=== PATIENT | female | born 1935 | race Caucasian/White ===

== ENCOUNTER 2017-11-04 07:08 | Day surgery (SDC) | payer MEDICARE, OTHER ==
[~2017-11-04] VITALS: Ht 175.3 cm; Wt 95.7 kg
[~2017-11-04 07:08] MED LIST: ALEN70 PO; AMLO10 PO; AMLO5 PO; AMOX500 PO; ATEN25 PO; BP MED; CALGLU500; CHOL10002 PO; CYCL10 PO; Calcium Magnes1 EACH PO; ERGO400; FAMO20 PO; HCTZ; HYDACE5 PO; HYDCHL25 PO; IBUP600 PO; LISINOPRIL; METO50 PO; METO50ER PO; Norco 5-325 Ta1 EACH PO; OMEPRAZOLE MAGN20 MG PO; OXYACE5T PO; PRAV20 PO; Permethrin59 ML TOP; STOMACH ACID MED; TAMS.4ER PO; [UNRECOGNIZED DRUG - REMARK]; [UNRECOGNIZED DRUG - REMARK]
== END 2017-11-04 22:51 | disposition home or self-care (01) ==
LOC: ORSCMMR 07:08
PROVIDERS: Internal Medicine Gastroenterology
PROC: 0DBK8ZX Excision of Ascending Colon, Via Natural or Artificial Opening Endoscopic, Diagnostic (ICD-10-PCS; principal; 2017-11-04 08:30)
PROC: 0DB68ZX Excision of Stomach, Via Natural or Artificial Opening Endoscopic, Diagnostic (ICD-10-PCS; principal; 2017-11-04 08:30)
PROC: 0DB48ZX Excision of Esophagogastric Junction, Via Natural or Artificial Opening Endoscopic, Diagnostic (ICD-10-PCS; principal; 2017-11-04 08:30)
PROC: 0DBL8ZX Excision of Transverse Colon, Via Natural or Artificial Opening Endoscopic, Diagnostic (ICD-10-PCS; principal; 2017-11-04 08:30)
PROC: 0DB98ZX Excision of Duodenum, Via Natural or Artificial Opening Endoscopic, Diagnostic (ICD-10-PCS; principal; 2017-11-04 08:30)
DX: R19.5 Other fecal abnormalities (principal); K21.9 Gastro-esophageal reflux disease without esophagitis; D12.2 Benign neoplasm of ascending colon; K63.5 Polyp of colon; K57.30 Diverticulosis of large intestine without perforation or abscess without bleeding; K44.9 Diaphragmatic hernia without obstruction or gangrene; I10 Essential (primary) hypertension; E78.00 Pure hypercholesterolemia, unspecified; Z79.899 Other long term (current) drug therapy
CPT/HCPCS: 88305; 88341; 88342; J7120

== ENCOUNTER → 2019-01-29 | Outpatient (CLI) | payer MEDICARE, OTHER | END | disposition home or self-care (01) | LOC: LAB 12:02 → LAB SHORT 12:02 | DX: L08.89 Other specified local infections of the skin and subcutaneous tissue (principal) | CPT/HCPCS: 87070; 87075; 87186; 87205 ==

== ENCOUNTER → 2020-03-06 | Outpatient (CLI) | payer MEDICARE, OTHER ==
[~2020-03-06] MED LIST changes: +Aspir 8181 MG PO; +CENTRUM SILVER1 EAC2 PO; +CLOP75 PO; +LISI20 PO; +MIRALAX17 GM PO; +Nitrostat0.3 MG SL; +OMEP20ER PO; +PANT40 PO; +VITAMIN D3-ALO1 EACH PO
[2020-03-06 13:29] LABS: BASOPHILS ABSOLUTE AUTO 0.05 K/mm3 (0.00-0.23); BASOPHILS PERCENT AUTO 1 % (0-2); EOSINOPHILS PERCENT AUTO 3 % (0-6); Hematocrit 41.9 % (33.0-51.0); Hemoglobin 13.5 g/dL (11.5-16.0); IMMATURE GRAN ABSOLUTE AUTO 0.02 K/mm3 (0.00-0.10); IMMATURE GRAN PERCENT AUTO 0 % (0-1); LYMPHOCYTES ABSOLUTE AUTO 1.72 K/mm3 (0.84-5.20); LYMPHOCYTES PERCENT AUTO 25 % (21-46); MONOCYTES ABSOLUTE AUTO 0.56 K/mm3 (0.16-1.47); MONOCYTES PERCENT AUTO 8 % (4-13); Mean Corpuscular HGB 27.2 pg (26.0-34.0); Mean Corpuscular HGB Conc 32.2 g/dL (31.5-36.5); Mean Corpuscular Volume 84 fL (80-100); Mean Platelet Volume 10.5 fL (9.1-12.4); NEUTROPHILS ABSOLUTE AUTO 4.26 K/mm3 (1.96-9.15); NEUTROPHILS PERCENT AUTO 63 % (41-73); Platelet Count 253 K/mm3 (150-400); RDW Coefficient Variation 18.8 % (11.7-14.2); RDW Standard Deviation 56.2 fL (35.1-46.3); Red Blood Cell Count 4.97 M/mm3 (3.80-5.20); White Blood Cell Count 6.81 K/mm3 (4.00-11.30)
[2020-03-06 13:54] LABS: Albumin, Blood 3.4 g/dL (3.4-5.0); Bilirubin, Total 0.3 mg/dL (0.1-1.0); Bun/Creatinine Ratio 28.2 (12.0-20.0); Calcium, Blood 9.2 mg/dL (8.5-10.1); Creatinine, Blood 1.03 mg/dL (0.40-1.00); Globulin, Blood 3.5 g/dL (2.2-4.0); Potassium, Blood 4.4 mmol/L (3.5-5.5); Total Protein, Blood 6.9 g/dL (6.4-8.2); Troponin I 0.057 ng/mL (0.000-0.040)
== END | disposition home or self-care (01) ==
LOC: LAB SHORT 13:25 → LAB EV 13:25
PROVIDERS: Physician Assistant Medical
DX: R06.09 Other forms of dyspnea (principal)
CPT/HCPCS: 80053; 84484; 85025

== ENCOUNTER 2020-04-23 10:56 | Emergency (ER) | payer MEDICARE, OTHER ==
[~2020-04-23] VITALS: Ht 172.7 cm; Wt 79.4 kg
[2020-04-23] MEDS ORDERED: HYDR1TAB94 PO (11:42)
[2020-04-23] MEDS ORDERED: Colace100 MG PO (11:42)
== END 2020-04-23 12:06 | disposition home or self-care (01) ==
LOC: ER 10:56
DX: G89.29 Other chronic pain (principal); M54.5 Low back pain; I10 Essential (primary) hypertension; K21.9 Gastro-esophageal reflux disease without esophagitis; Z79.02 Long term (current) use of antithrombotics/antiplatelets; Z79.899 Other long term (current) drug therapy; Z79.82 Long term (current) use of aspirin
CPT/HCPCS: 99283

== ENCOUNTER 2020-04-29 09:12 | Emergency (ER) | payer MEDICARE, OTHER ==
[~2020-04-29] VITALS: Ht 170.2 cm; Wt 79.4 kg
[~2020-04-29 09:12] MED LIST changes: +Colace100 MG PO; +HYDR1TAB94 PO
[2020-04-29] MEDS ORDERED: Norco 5-325 Ta1 EACH PO (09:42)
== END 2020-04-29 09:50 | disposition home or self-care (01) ==
LOC: ER 09:12
DX: G89.29 Other chronic pain (principal); M54.5 Low back pain; Z76.0 Encounter for issue of repeat prescription; Z79.899 Other long term (current) drug therapy; Z79.82 Long term (current) use of aspirin; Z79.02 Long term (current) use of antithrombotics/antiplatelets
CPT/HCPCS: 99281

== ENCOUNTER 2020-09-21 16:52 | Inpatient (IN) | payer MEDICARE, OTHER ==
[~2020-09-21] VITALS: Ht 175.3 cm; Wt 73.6 kg
[~2020-09-21 16:52] MED LIST changes: -ATOR40TA PO; -Aspir 8181 MG PO; -CENTRUM SILVER1 EAC2 PO; -CLOP75 PO; -LISI20 PO; -PANT40 PO
[2020-09-21 18:26] LABS: Source, Urine Clean Catch
[2020-09-21 18:31] LABS: Appearance, Urine Clear (Clear); Bilirubin, Urine Neg (Neg); Blood, Urine 1+ (Neg); Color, Urine Yellow (P-Yellow); Glucose Qualitative, Urine Neg (Neg); Ketones, Urine Neg (Neg); Leukocyte Esterase, Urine 2+ (Neg); Nitrite, Urine Neg (Neg); Protein, Urine 1+ (Neg); Urobilinogen, Urine NORM (Normal)
[2020-09-21 18:43] LABS: Bacteria Few /hpf; Squamous Epithelial Cells Few /hpf (Few)
[2020-09-21] MEDS ORDERED: CLOP75 PO (20:14)
[2020-09-21] MEDS ORDERED: ATOR40TA PO (20:14)
[2020-09-21] MEDS ORDERED: PANT40 PO (20:15)
[2020-09-21] MEDS ORDERED: LISI20 PO (20:15)
[2020-09-21] MEDS ORDERED: CENTRUM SILVER1 EAC2 PO (20:58)
[2020-09-21] MEDS ORDERED: Aspir 8181 MG PO (20:58)
--- NOTE | 2020-09-21 22:38 | NUR ---
PATIENT IS A NEW ADMIT FROM THE ED. AXOX 3 AND THREE PERSON TRANSFER FROM [facility] TO BED. ON ROOM AIR. DENIES CHEST PAIN, SOB, AND N/V. PATIENT ORIENTED TO ROOM AND CALL LIGHT SYSTEM. GENDER REASSIGNMENT THIRTY YEARS AGO MALE TO FEMALE. WARM BLANKET PROVIDED. CALL LIGHT IN REACH.
--- NOTE | 2020-09-21 22:42 | NUR ---
TELEMETRY PLACED AND TECH REPORTS NSR 80. NS STARTED AT 100 mL/HR. CARDIAC PANTRY FOOD PROVIDED. WATCHING TV. CALL LIGHT IN REACH.
--- NOTE | 2020-09-22 03:59 | NUR ---
SHIFT SUMMARY PATIENT HAD NO ACUTE CHANGES OBSERVED. AXOX 4 AND ONE ASSIST TO BR WITH FWW. PIV REMAINS INTACT. NS INFUSING AT 100 mL/HR. EDUCATIONAL ASSISTANT REPORTS NSR 80. GENDER REASSIGNMENT THIRTY YEARS AGO MALE TO FEMALE. VSS/AFEBRILE. DENIES CHEST PAIN, SOB, AND N/V. WATCHED TV ON/OFF T/O SHIFT. BRUISING RIGHT KNEE, ELBOW, AND BACK. REPORTS LOST FIFTY POUNDS ON SLIM FAST PRODUCTS AND PROTEIN BARS. COOPERATIVE WITH CARE. CALL LIGHT IN REACH. BED IN LOWEST POSITION. WILL CONTINUE TO MONITOR UNTIL DAY SHIFT NURSE ASSUMES CARE.
[2020-09-22 05:37] LABS: BASOPHILS ABSOLUTE AUTO 0.02 K/mm3 (0.00-0.23); BASOPHILS PERCENT AUTO 0 % (0-2); EOSINOPHILS ABSOLUTE AUTO 0.01 K/mm3 (0.00-0.68); EOSINOPHILS PERCENT AUTO 0 % (0-6); Hematocrit 31.5 % (33.0-51.0); Hemoglobin 10.3 g/dL (11.5-16.0); IMMATURE GRAN ABSOLUTE AUTO 0.03 K/mm3 (0.00-0.10); IMMATURE GRAN PERCENT AUTO 0 % (0-1); LYMPHOCYTES ABSOLUTE AUTO 0.92 K/mm3 (0.84-5.20); LYMPHOCYTES PERCENT AUTO 10 % (21-46); MONOCYTES ABSOLUTE AUTO 1.01 K/mm3 (0.16-1.47); MONOCYTES PERCENT AUTO 11 % (4-13); Mean Corpuscular HGB 30.2 pg (26.0-34.0); Mean Corpuscular HGB Conc 32.7 g/dL (31.5-36.5); Mean Corpuscular Volume 92 fL (80-100); Mean Platelet Volume 9.9 fL (9.1-12.4); NEUTROPHILS ABSOLUTE AUTO 6.89 K/mm3 (1.96-9.15); NEUTROPHILS PERCENT AUTO 78 % (41-73); Platelet Count 178 K/mm3 (150-400); RDW Coefficient Variation 14.6 % (11.7-14.2); RDW Standard Deviation 49.1 fL (35.1-46.3); Red Blood Cell Count 3.41 M/mm3 (3.80-5.20); White Blood Cell Count 8.88 K/mm3 (4.00-11.30)
[2020-09-22 05:58] LABS: Anion Gap 5 mmol/L (6-16); Blood Urea Nitrogen 21 mg/dL (8-24); Bun/Creatinine Ratio 33.8 (12.0-20.0); CO2, Blood 25 mmol/L (21-32); Calcium, Blood 7.6 mg/dL (8.5-10.1); Chloride, Blood 104 mmol/L (98-108); Creatinine, Blood 0.62 mg/dL (0.40-1.00); Glomerular Filtration Rate >60 (60-); Glucose, Blood 94 mg/dL (70-99); Potassium, Blood 4.2 mmol/L (3.5-5.5); Sodium, Blood 134 mmol/L (136-145); Troponin I 0.079 ng/mL (0.000-0.040)
[2020-09-22 09:01] LABS: Phosphorus, Blood 1.8 mg/dL (2.5-4.9)
--- NOTE | 2020-09-22 10:30 | NUR ---
RECIEVED A CALL FROM TELE- PT IS HAVING INCREASED HEIGHT OF THE T WAVES. REQUESTED A BEFORE AND AFTER STRIP, THOSE ARE IN THE PT CHART. SPOKE TO DR LYNCH ABOUT IT HE IS AWARE. WILL CTM, NO NEW ORDERS AT THIS TIME.
--- NOTE | 2020-09-22 14:22 | NUR ---
CALLED DR LYNCH- NEW IV ORDER FOR POTASSIUM PHOSPHATE AND CALCIUM GLUCONATE PRESENT IN THE EMAR. SPOKE TO PT POTASSIUM IS WNL BUT SOD IS LOW. STATED HE WILL PLACE A NEW ORDER FOR SODIUM PHOSPHATE.
--- NOTE | 2020-09-22 17:10 | NUR ---
SHIFT SUMMARY- PT ALERT AND ORIENTED 1P SBA TO THE BATHROOM OR THE CHAIR. PT HAS IVF RUNNING AT A RATE OF 100ML/HR. CALCIUM GLUCONATE INFUSION COMPLETED SODIUM PHOSPHATE CURRENTLY INFUSING THEN THE NS WILL RESUME. SOME CHANGES IN THE T WAVES THIS AFTERNOON, SPOKE TO DR LYNCH HE IS AWARE. SPOKE TO TELE THIS EVENING AND THE T WAVES HAVE NOT INCREASED ANY FARTHER. WILL CTM AND PASS ON TO NIGHT RN IN BEDSIDE REPORT. AC IV IS POSSITIONAL ARMBOARD HAS WORKED TO STOP FREQUENT DISTAL OCCLUSIONS. HAIR SPRING CUTTER WAS PLANNING TO ATTEMPT A NEW IV PLACEMENT, CURRENT IV IS EFFECTIVELY WORKING.
--- NOTE | 2020-09-23 02:50 | NUR ---
PATIENT CONFUSED REPORTING SHE THOUGHT SHE WAS HOME. IMPULSIVE GETTING UP TO BATHROOM AND NOT USING CALL LIGHT. BED ALARM ACTIVATED. PATIENT REORIENTED BACK TO HOSPITAL SETTING AND BACK IN BED. NS INFUSING AND CALL LIGHT IN REACH WITH BED ALARM ON.
--- NOTE | 2020-09-23 03:50 | NUR ---
SHIFT SUMMARY PATIENT HAD INCREASED CONFUSION X TWO OOB REPORTING SHE THOUGHT SHE WAS HOME.IMPULSIVE NOT FOLLOWING DIRECTIONS. AXOX 3 AND ONE ASSIST TO BR. PIV REMAINS INTACT. NS INFUSING AT 100mL/HR ONE OF TWO BAGS. STEWARD/STEWARDESS BANQUET REPORTS NSR 75. DENIES PAIN, SOB, AND N/V. VSS/AFEBRILE. CALL LIGHT IN REACH. BED IN LOWEST POSITION AND ALARM ACTIVATED. WILL CONTINUE TO MONITOR UNTIL DAY SHIFT NURSE ASSUMES CARE.
[2020-09-23 04:53] LABS: BASOPHILS ABSOLUTE AUTO 0.03 K/mm3 (0.00-0.23); BASOPHILS PERCENT AUTO 1 % (0-2); EOSINOPHILS ABSOLUTE AUTO 0.06 K/mm3 (0.00-0.68); EOSINOPHILS PERCENT AUTO 1 % (0-6); Hematocrit 30.6 % (33.0-51.0); Hemoglobin 9.9 g/dL (11.5-16.0); IMMATURE GRAN ABSOLUTE AUTO 0.04 K/mm3 (0.00-0.10); IMMATURE GRAN PERCENT AUTO 1 % (0-1); LYMPHOCYTES ABSOLUTE AUTO 0.69 K/mm3 (0.84-5.20); LYMPHOCYTES PERCENT AUTO 11 % (21-46); MONOCYTES ABSOLUTE AUTO 0.78 K/mm3 (0.16-1.47); MONOCYTES PERCENT AUTO 13 % (4-13); Mean Corpuscular HGB 29.7 pg (26.0-34.0); Mean Corpuscular HGB Conc 32.4 g/dL (31.5-36.5); Mean Corpuscular Volume 92 fL (80-100); Mean Platelet Volume 10.8 fL (9.1-12.4); NEUTROPHILS PERCENT AUTO 74 % (41-73); Platelet Count 179 K/mm3 (150-400); RDW Coefficient Variation 14.3 % (11.7-14.2); Red Blood Cell Count 3.33 M/mm3 (3.80-5.20)
[2020-09-23 05:06] LABS: Anion Gap 5 mmol/L (6-16); Blood Urea Nitrogen 12 mg/dL (8-24); Bun/Creatinine Ratio 21.2 (12.0-20.0); CO2, Blood 28 mmol/L (21-32); Calcium, Blood 8.1 mg/dL (8.5-10.1); Chloride, Blood 102 mmol/L (98-108); Creatinine, Blood 0.57 mg/dL (0.40-1.00); Glomerular Filtration Rate >60 (60-); Glucose, Blood 99 mg/dL (70-99); Magnesium, Blood 1.9 mg/dL (1.6-2.4); Phosphorus, Blood 2.3 mg/dL (2.5-4.9); Potassium, Blood 3.9 mmol/L (3.5-5.5); Sodium, Blood 135 mmol/L (136-145)
[2020-09-23 09:25] LABS: Creatine Kinase MB 4.3 ng/mL (0.0-3.6); Creatine Kinase MB Index 0.5 (0.0-4.0)
--- NOTE | 2020-09-23 12:58 | NUR ---
PT WAS SEEN BY PHYSICAL THERAPY- RECOMENDATION IS HOME WITH OUT PT PHYSICAL THERAPY. PHYSICAL THERAPY RECOMENDED A WALKER FOR STABILITY. CALLED DC PLANNING THEY WILL SEND ORDER TO [facility] FOR A WALKER TO BE DELIVERED TO THE PT HOME. CALLED DR LYNCH HE WILL WRITE THE DISCHARGE ORDERS SHORTLY.
--- NOTE | 2020-09-23 17:30 | NUR ---
DISCHARGE NOTE- PT WAS GIVEN VERBAL AND WRITTEN DISCHARGE INSTRUCTIONS AND ACKNOWLEDGED UNDERSTANDING OF THEM IV AND TELE DC'D PRIOR TO DISCHAGRE. PT ESCORTED OUT VIA WC BY THE INDEPENDENT FILM MAKER WHERE A TAXI WAS SCHEDULED TO PICK HER UP AND TAKE HER TO HER CAR AT [facility]. NO S&S OF DISTRESS NOTED AND NO FURTHER QUESTIONS AT THE TIME OF DISCHARGE.
== END 2020-09-23 15:36 | disposition home health service (06) | DRG 558 ==
LOC: ER 16:52 → MEDS 20:00
PROVIDERS: Internal Medicine; Student in an Organized Health Care Education/Training Program; ADMIT Family Medicine
DX: M62.82 Rhabdomyolysis (principal); N17.9 Acute kidney failure, unspecified; M80.88XA Other osteoporosis with current pathological fracture, vertebra(e), initial encounter for fracture; E87.1 Hypo-osmolality and hyponatremia; E83.39 Other disorders of phosphorus metabolism; E78.5 Hyperlipidemia, unspecified; E83.51 Hypocalcemia; E86.0 Dehydration; I25.10 Atherosclerotic heart disease of native coronary artery without angina pectoris; Z95.5 Presence of coronary angioplasty implant and graft; I10 Essential (primary) hypertension; K21.9 Gastro-esophageal reflux disease without esophagitis; K44.9 Diaphragmatic hernia without obstruction or gangrene; D64.9 Anemia, unspecified; F64.0 Transsexualism
CPT/HCPCS: 36415; 71046; 80048; 80053; 81001; 82550; 82553; 83735; 83880; 84100; 84443; 84484; 84550; 85025; 85379; 87086; 93005; 93010; 96360; 97116; 97161; 99285-25; A9270; J0610; J1644; J1650; J7030; J7060

== ENCOUNTER → 2020-09-21 | Outpatient (CLI) | payer MEDICARE, OTHER ==
[~2020-09-21] MED LIST changes: +ATOR40TA PO
[2020-09-21 15:49] LABS: BASOPHILS ABSOLUTE AUTO 0.01 K/mm3 (0.00-0.23); BASOPHILS PERCENT AUTO 0 % (0-2); EOSINOPHILS PERCENT AUTO 0 % (0-6); Hematocrit 37.6 % (33.0-51.0); Hemoglobin 12.7 g/dL (11.5-16.0); IMMATURE GRAN ABSOLUTE AUTO 0.06 K/mm3 (0.00-0.10); IMMATURE GRAN PERCENT AUTO 0 % (0-1); LYMPHOCYTES ABSOLUTE AUTO 0.89 K/mm3 (0.84-5.20); LYMPHOCYTES PERCENT AUTO 7 % (21-46); MONOCYTES ABSOLUTE AUTO 1.44 K/mm3 (0.16-1.47); MONOCYTES PERCENT AUTO 10 % (4-13); Mean Corpuscular HGB 30.5 pg (26.0-34.0); Mean Corpuscular HGB Conc 33.8 g/dL (31.5-36.5); Mean Corpuscular Volume 90 fL (80-100); Mean Platelet Volume 10.2 fL (9.1-12.4); NEUTROPHILS ABSOLUTE AUTO 11.38 K/mm3 (1.96-9.15); NEUTROPHILS PERCENT AUTO 83 % (41-73); Platelet Count 231 K/mm3 (150-400); RDW Coefficient Variation 14.5 % (11.7-14.2); RDW Standard Deviation 47.5 fL (35.1-46.3); Red Blood Cell Count 4.16 M/mm3 (3.80-5.20); White Blood Cell Count 13.78 K/mm3 (4.00-11.30)
[2020-09-21 16:13] LABS: Albumin, Blood 3.3 g/dL (3.4-5.0); Albumin/Globulin Ratio 1.1 (0.8-1.8); Bilirubin, Total 1.4 mg/dL (0.1-1.0); Bun/Creatinine Ratio 29.4 (12.0-20.0); Calcium, Blood 8.8 mg/dL (8.5-10.1); Creatinine, Blood 1.09 mg/dL (0.40-1.00); Globulin, Blood 3.1 g/dL (2.2-4.0); Potassium, Blood 4.7 mmol/L (3.5-5.5); Thyroid Stimulating Hormone 1.744 uIU/mL (0.360-4.800); Total Protein, Blood 6.4 g/dL (6.4-8.2); Troponin I 0.096 ng/mL (0.000-0.040)
== END ==
LOC: LAB EV 15:43 → LAB SHORT 15:43
PROVIDERS: Chiropractor
DX: E86.9 Volume depletion, unspecified (principal); R29.6 Repeated falls; R53.83 Other fatigue
CPT/HCPCS: 80053; 82550; 83880; 84443; 84484; 85025; 85379

== ENCOUNTER → 2020-09-26 | Outpatient (CLI) | payer MEDICARE, OTHER ==
[~2020-09-26] MED LIST changes: +ATOR40TA PO; +Aspir 8181 MG PO; +CENTRUM SILVER1 EAC2 PO; +CLOP75 PO; +LISI20 PO; +PANT40 PO
[2020-09-26 11:21] LABS: BASOPHILS ABSOLUTE AUTO 0.04 K/mm3 (0.00-0.23); BASOPHILS PERCENT AUTO 1 % (0-2); EOSINOPHILS ABSOLUTE AUTO 0.11 K/mm3 (0.00-0.68); EOSINOPHILS PERCENT AUTO 2 % (0-6); Hematocrit 40.6 % (33.0-51.0); Hemoglobin 13.3 g/dL (11.5-16.0); IMMATURE GRAN ABSOLUTE AUTO 0.03 K/mm3 (0.00-0.10); IMMATURE GRAN PERCENT AUTO 1 % (0-1); LYMPHOCYTES ABSOLUTE AUTO 0.97 K/mm3 (0.84-5.20); LYMPHOCYTES PERCENT AUTO 16 % (21-46); MONOCYTES ABSOLUTE AUTO 0.68 K/mm3 (0.16-1.47); MONOCYTES PERCENT AUTO 11 % (4-13); Mean Corpuscular HGB 30.3 pg (26.0-34.0); Mean Corpuscular HGB Conc 32.8 g/dL (31.5-36.5); Mean Corpuscular Volume 93 fL (80-100); Mean Platelet Volume 9.9 fL (9.1-12.4); NEUTROPHILS ABSOLUTE AUTO 4.31 K/mm3 (1.96-9.15); NEUTROPHILS PERCENT AUTO 70 % (41-73); Platelet Count 304 K/mm3 (150-400); RDW Coefficient Variation 14.5 % (11.7-14.2); RDW Standard Deviation 48.8 fL (35.1-46.3); Red Blood Cell Count 4.39 M/mm3 (3.80-5.20); White Blood Cell Count 6.14 K/mm3 (4.00-11.30)
[2020-09-26 12:28] LABS: Alanine Aminotransfer (ALT/SGP 66 U/L (12-78); Albumin, Blood 3.3 g/dL (3.4-5.0); Albumin/Globulin Ratio 0.8 (0.8-1.8); Alk Phos 104 U/L (50-136); Anion Gap 2 mmol/L (6-16); Aspartate Aminotrans (AST/SGOT 47 U/L (12-37); Bilirubin, Total 0.5 mg/dL (0.1-1.0); Blood Urea Nitrogen 12 mg/dL (8-24); Bun/Creatinine Ratio 18.2 (12.0-20.0); CO2, Blood 32 mmol/L (21-32); CPK Creatine Kinase 95 U/L (26-193); Calcium, Blood 9.2 mg/dL (8.5-10.1); Chloride, Blood 99 mmol/L (98-108); Creatinine, Blood 0.66 mg/dL (0.40-1.00); Globulin, Blood 4.1 g/dL (2.2-4.0); Glomerular Filtration Rate >60 (60-); Glucose, Blood 95 mg/dL (70-99); Potassium, Blood 4.7 mmol/L (3.5-5.5); Sodium, Blood 133 mmol/L (136-145); Total Protein, Blood 7.4 g/dL (6.4-8.2); Troponin I 0.057 ng/mL (0.000-0.040)
== END | disposition home or self-care (01) ==
LOC: LAB SHORT 11:12 → PLD 11:12
PROVIDERS: Physician Assistant
DX: M79.10 Myalgia, unspecified site (principal)
CPT/HCPCS: 80053; 82550; 84484; 85025

== ENCOUNTER 2021-06-03 22:22 | Observation (INO) | payer MEDICARE, OTHER ==
[~2021-06-03] VITALS: Ht 175.3 cm; Wt 75.5 kg
[2021-06-03 22:41] LABS: BASOPHILS ABSOLUTE AUTO 0.04 K/mm3 (0.00-0.23); BASOPHILS PERCENT AUTO 0 % (0-2); EOSINOPHILS ABSOLUTE AUTO 0.17 K/mm3 (0.00-0.68); EOSINOPHILS PERCENT AUTO 2 % (0-6); Hematocrit 41.3 % (33.0-51.0); Hemoglobin 13.4 g/dL (11.5-16.0); IMMATURE GRAN ABSOLUTE AUTO 0.04 K/mm3 (0.00-0.10); IMMATURE GRAN PERCENT AUTO 0 % (0-1); LYMPHOCYTES ABSOLUTE AUTO 1.46 K/mm3 (0.84-5.20); LYMPHOCYTES PERCENT AUTO 15 % (21-46); MONOCYTES ABSOLUTE AUTO 1.01 K/mm3 (0.16-1.47); MONOCYTES PERCENT AUTO 10 % (4-13); Mean Corpuscular HGB 26.9 pg (26.0-34.0); Mean Corpuscular HGB Conc 32.4 g/dL (31.5-36.5); Mean Corpuscular Volume 83 fL (80-100); Mean Platelet Volume 10.1 fL (9.1-12.4); NEUTROPHILS PERCENT AUTO 73 % (41-73); Platelet Count 265 K/mm3 (150-400); RDW Coefficient Variation 15.3 % (11.7-14.2); RDW Standard Deviation 46.5 fL (35.1-46.3); Red Blood Cell Count 4.98 M/mm3 (3.80-5.20); White Blood Cell Count 9.92 K/mm3 (4.00-11.30)
[2021-06-03 22:57] LABS: Alanine Aminotransfer (ALT/SGP 18 U/L (12-78); Albumin, Blood 3.5 g/dL (3.4-5.0); Alk Phos 78 U/L (50-136); Anion Gap 4 mmol/L (6-16); Aspartate Aminotrans (AST/SGOT 20 U/L (12-37); Bilirubin, Total 0.5 mg/dL (0.1-1.0); Blood Urea Nitrogen 10 mg/dL (8-24); Bun/Creatinine Ratio 14.3 (12.0-20.0); CO2, Blood 30 mmol/L (21-32); Calcium, Blood 8.9 mg/dL (8.5-10.1); Chloride, Blood 98 mmol/L (98-108); Globulin, Blood 3.6 g/dL (2.2-4.0); Glomerular Filtration Rate >60 (60-); Glucose, Blood 119 mg/dL (70-99); Sodium, Blood 132 mmol/L (136-145); Total Protein, Blood 7.1 g/dL (6.4-8.2); Troponin I 0.047 ng/mL (0.000-0.040)
[2021-06-04 01:11] LABS: International Normalized Ratio 0.98; Prothrombin Time Results 10.3 Sec (9.7-11.5)
--- NOTE | 2021-06-04 03:06 | NUR ---
ADMISSION NOTE: RECEIVED PT FROM ER VIA STRETCHER AAOX3. HE DENIES CHEST PAIN. HEPARIN DRIP INFUSING AT 20.3 ML/HR. NO SIGNS OF BLEEDING NOTED. PT ON TELE SR WITH PACS. ORIENTED PT TO ROOM, CALL, LIGHT. SAFETY MEASURES IMPLEMENTED. WILL CONTINUE TO MONITOR.
--- NOTE | 2021-06-04 17:49 | NUR ---
SHIFT SUMMARY PATIENT ALERT AND ORIENTED THROUGHOUT THIS SHIFT. PATIENT UP INDEPENDENTLY, WALKING IN THE ROOM AND IN THE HALLWAY. PATIENT DENIES CP THIS SHIFT. RUN OF 17 BEATS OF SVT REPORTED BY RISK MODELERDR NOTIFCURTIS, PLANS FOR STRESS TEST MADE. PATIENT CALM AND COOPERATIVE WITH CARE. PATIENT CURRENTLY SITTING UP IN CHAIR EATING DINNER.
--- NOTE | 2021-06-04 18:24 | NUR ---
RESIDENCE: [facility]END[facility] - HOME [place]. PT. MANAGES HER OWN MEDICATIONS AND DRIVES TO APPOINTMENTS NEEDED. ABLE TO MEET HER NEED AND PERFORM ALL ADLS. NEXT OF KIN/CONTACTS: NONE IN [employer] OR [employer]. PT. DENIES HAVING ASSISTANCE AT HOME FROM CAREGIVER OR FAMILY. UPDATE 06/04/21: PER CHART REVIEW WITH DR. HERRING THIS AM, PT. NOT YET APPROPRIATE FOR DISCHARGE. PT. HAS VERY LIMITED SUPPORT AT HOME CURRENTLY. SHE DOES HAVE SOME NEIGHBORS WHO SHE REPORTS WILL ASSIST HER NEEDED. PER REVIEW OF CHART, PT. HAS BEEN AMBULATING WELL IN ROOM AND HALLWAY WITHOUT ASSISTANCE. PT. STATED THAT IN THE PAST WHEN SHE HAS NEEDS SHE IS ABLE TO REACH OUT TO HER PCP AT [facility]. DISCUSSED CARE WITH DR. HERRING THIS EVENING. HH NOT INDICATED AT THIS TIME. PT. IS NOT HOME BOUND AND IS NOT CURRENTLY IN NEED OF PT OUTPATIENT. PT. IS AWARE THAT SHE CAN CONTACT [facility] AT ANYTIME IF HER NEEDS WERE TO CHANGE. PT. WAS PROVIDED WITH RESOURCE PACKET BY [facility]. DISPOSITION: LIKELY HOME TOMORROW IF STRESS TEST WNL AND PT. REMAINS STABLE. ANTICIPATE NEEDS AT TIME OF DISCHARGE TO INCLUDE: HOSPITAL F/U WITH PCP WITHIN 5-7 DAYS POST DISCHARGE, PHARMACY DELIVERY OR PATIENT TO STEAM PRESS TENDER NEW MEDS (DISCUSS WITH PATIENT TOMORROW), BALWINDER CALL 24-48 HOURS POST DISCHARGE.
--- NOTE | 2021-06-05 05:36 | NUR ---
PT HAS BEEN ANXIOUS AND RESTLESS AT TIMES. REMAINS SINUS TACH ON TELE. OBSERVED PACING IN HALLWAY. HR INCREASED TO 134 WITH MOVEMENT. REDIRECTED PT NEEDED. ENCOURAGE BEDREST. NO CHANGE IN STATUS NOTED. SINUS TACH 103 PER TRAVELING SALES EXECUTIVE. PT IS AWARE OF STRESS TEST IN AM AND NPO AFTER MIDNIGHT. IMPULSIVE AT TIMES. BED ALARM EXIT ON.
--- NOTE | 2021-06-05 12:59 | NUR ---
DISCHARGE INSTRUCTIONS WERE BEING TYPED UP AND PATIENT DID NOT WISH TO WAIT FOR THEM. RN FOLLOWED PATIENT DOWN TO ELEVATOR WITH PATIENT STATING "I DON'T WANT TO WAIT. I'M GOING HOME." RN ADVISED PATIENT WE WERE GOING TO TRY AND GET HER A RIDE WITH PATIENT STATING "I DON'T NEED ONE." STEADY GAIT IN HALLWAY. NO INSTRUCTIONS GIVEN. NO CHANGES IN MEDS.
--- NOTE | 2021-06-05 15:20 | NUR ---
Update 06/05/21: Per chart review this am, pt. appropriate for discharge. Please review previous notes regarding discharge plan. Pt. scheduled for hospital F/U on 06/10/21 at 12 pm with pcp. Pt. denied any additional needs. BALWINDER team will follow-up with pt. with call within 24-48 hours.
== END 2021-06-05 13:10 | disposition home or self-care (01) ==
LOC: ER 22:22 → MEDS 22:23
PROVIDERS: Emergency Medicine; ADMIT Internal Medicine
DX: I21.4 Non-ST elevation (NSTEMI) myocardial infarction (principal); I16.1 Hypertensive emergency; I10 Essential (primary) hypertension; I25.119 Atherosclerotic heart disease of native coronary artery with unspecified angina pectoris; E87.1 Hypo-osmolality and hyponatremia; E78.5 Hyperlipidemia, unspecified; K21.9 Gastro-esophageal reflux disease without esophagitis; Z95.5 Presence of coronary angioplasty implant and graft; Z87.81 Personal history of (healed) traumatic fracture
CPT/HCPCS: 36415; 71046; 78452; 80053; 83690; 83880; 84484; 85025; 85610; 85730; 93005; 93010; 93017; 96372; 96374; 96376; 99285-25; A9270; A9500; G0378; J1644; J1650; J2785

== ENCOUNTER 2022-02-18 08:58 | Day surgery (SDC) | payer MEDICARE, OTHER ==
[~2022-02-18] VITALS: Ht 172.7 cm; Wt 74.0 kg
[2022-02-18] MEDS ORDERED: METO25ER PO (09:18)
[2022-02-18] MEDS ORDERED: XARELTO20 MG PO (09:19)
--- NOTE | 2022-02-18 12:00 | NUR ---
10CC AIR REMOVED FROM R WRIST TR BAND. -BLEEDING OR SWELLING.
--- NOTE | 2022-02-18 12:15 | NUR ---
PT AMBULATES TO RESTROOM AND BACK WITHOUT DIFF. VSS. NADN. R RADIAL TR BAND REMAINS IN PLACE. NO BLEEDING NOTED.
--- NOTE | 2022-02-18 13:00 | NUR ---
R WRIST TR BAND REMOVED. PUNCTURE AREA CLEANED /C NS. -BLEEDING OR SWELLING. R WRIST SPLINT REAPPLIED. IV REMOVED. PT VERBALIZED UNDERSTANDING OF WRITTEN AND VERBAL D/C INST. PT TAKEN OUT OF THE HRT CENTER VIA W/C.
== END 2022-02-18 14:00 | disposition home or self-care (01) ==
LOC: MHTC 08:58
DX: Z01.810 Encounter for preprocedural cardiovascular examination (principal); I34.0 Nonrheumatic mitral (valve) insufficiency; I25.10 Atherosclerotic heart disease of native coronary artery without angina pectoris; I48.0 Paroxysmal atrial fibrillation; E78.5 Hyperlipidemia, unspecified; I10 Essential (primary) hypertension; Z79.899 Other long term (current) drug therapy
CPT/HCPCS: 76937; 93458; 99152; 99153; C1769; C1887; C1894; J1644; J2250; J3010; J7030; J7040; Q9967

== ENCOUNTER 2022-07-14 10:07 | Day surgery (SDC) | payer MEDICARE, OTHER ==
[~2022-07-14] VITALS: Ht 172.7 cm; Wt 75.0 kg
[~2022-07-14 10:07] MED LIST changes: +METO25ER PO; +XARELTO20 MG PO
[2022-07-14] MEDS ORDERED: CALCIUM 600 +1 EA11 PO (11:04)
[2022-07-14] MEDS ORDERED: LOSA50 PO (11:04)
[2022-07-14] MEDS ORDERED: FERSU300 PO (11:05)
--- NOTE | 2022-07-14 12:05 | NUR ---
PT AWAKE AND CONVERSING APPROPRIATELY POST PROCEDURE; VSS, DENIES PAIN.
--- NOTE | 2022-07-14 12:35 | NUR ---
PT DRESSED SELF WITHOUT ISSUE, IV REMOVED-CANNULA INTACT. PT RECEIVED DISCHARGE INSTRUCTIONS, MED LIST AND AFTER CARE INSTRUCTIIONS; VERBALIZED GOOD UNDERSTANDING.
--- NOTE | 2022-07-14 12:43 | NUR ---
PT LEFT FACILITY VIA W/C, CONDITION STABLE.
== END 2022-07-14 23:32 | disposition home or self-care (01) ==
LOC: MHTC 10:07
DX: I25.10 Atherosclerotic heart disease of native coronary artery without angina pectoris (principal); I34.0 Nonrheumatic mitral (valve) insufficiency; I48.0 Paroxysmal atrial fibrillation; I10 Essential (primary) hypertension; E78.5 Hyperlipidemia, unspecified
CPT/HCPCS: 93312; 93325; A9270; J2704; J7030

== ENCOUNTER → 2023-04-11 | Outpatient (CLI) | payer MEDICARE, OTHER ==
[~2023-04-11] MED LIST changes: +CALCIUM 600 +1 EA11 PO; +FERSU300 PO; +LOSA50 PO
[2023-04-11 14:41] LABS: BASOPHILS ABSOLUTE AUTO 0.03 K/mm3 (0.00-0.23); BASOPHILS PERCENT AUTO 1 % (0-2); EOSINOPHILS ABSOLUTE AUTO 0.17 K/mm3 (0.00-0.68); EOSINOPHILS PERCENT AUTO 4 % (0-6); Hematocrit 45.3 % (33.0-51.0); Hemoglobin 15.3 g/dL (11.5-16.0); IMMATURE GRAN ABSOLUTE AUTO 0.01 K/mm3 (0.00-0.10); IMMATURE GRAN PERCENT AUTO 0 % (0-1); LYMPHOCYTES ABSOLUTE AUTO 1.07 K/mm3 (0.84-5.20); LYMPHOCYTES PERCENT AUTO 23 % (21-46); MONOCYTES ABSOLUTE AUTO 0.36 K/mm3 (0.16-1.47); MONOCYTES PERCENT AUTO 8 % (4-13); Mean Corpuscular HGB 31.3 pg (26.0-34.0); Mean Corpuscular HGB Conc 33.8 g/dL (31.5-36.5); Mean Corpuscular Volume 93 fL (80-100); Mean Platelet Volume 10.2 fL (9.1-12.4); NEUTROPHILS ABSOLUTE AUTO 2.97 K/mm3 (1.96-9.15); NEUTROPHILS PERCENT AUTO 64 % (41-73); Platelet Count 192 K/mm3 (150-400); RDW Coefficient Variation 14.9 % (11.7-14.2); RDW Standard Deviation 50.8 fL (35.1-46.3); Red Blood Cell Count 4.89 M/mm3 (3.80-5.20); White Blood Cell Count 4.61 K/mm3 (4.00-11.30)
[2023-04-11 14:53] LABS: Albumin, Blood 3.5 g/dL (3.4-5.0); Bilirubin, Total 0.7 mg/dL (0.1-1.0); Bun/Creatinine Ratio 14.4 (12.0-20.0); Calcium, Blood 9.6 mg/dL (8.5-10.1); Creatinine, Blood 0.97 mg/dL (0.40-1.00); Globulin, Blood 3.5 g/dL (2.2-4.0); Potassium, Blood 4.6 mmol/L (3.5-5.5)
== END ==
LOC: LAB 14:37 → LAB SHORT 14:37
PROVIDERS: Emergency Medicine
DX: R10.9 Unspecified abdominal pain (principal)
CPT/HCPCS: 80053; 83690; 85025

== ENCOUNTER 2023-05-05 23:31 | Emergency (ER) | payer MEDICARE, OTHER ==
[~2023-05-05] VITALS: Ht 172.7 cm; Wt 74.8 kg
[2023-05-06 00:11] VITALS: BP 116/83
[2023-05-06] MEDS ORDERED: LIDOCAINE1 EACH TOP (02:42)
== END 2023-05-06 03:03 | disposition home or self-care (01) ==
LOC: ER 23:31
DX: M54.50 Low back pain, unspecified (principal); G89.29 Other chronic pain; I25.10 Atherosclerotic heart disease of native coronary artery without angina pectoris; I10 Essential (primary) hypertension; Z95.5 Presence of coronary angioplasty implant and graft; Z79.01 Long term (current) use of anticoagulants; Z79.899 Other long term (current) drug therapy
CPT/HCPCS: 99283

== ENCOUNTER 2024-08-31 23:39 | Emergency (ER) | payer MEDICARE, OTHER ==
[~2024-08-31] VITALS: Ht 177.8 cm; Wt 76.2 kg
[~2024-08-31 23:39] MED LIST changes: +ACET120S PR; +FLUT.05NI; +LIDOCAINE1 EACH TOP; +METO25 PO; +NYSTATIN15 GM TOP; +OXAYDO5 M1 PO; +Prevacid Soluta30 MG PO
[2024-09-01 00:40] VITALS: BP 120/85
[2024-09-01 02:06] LABS: Albumin, Blood 3.3 g/dL (3.4-5.0); Albumin/Globulin Ratio 1.1 (0.8-1.8); Bilirubin, Total 0.8 mg/dL (0.1-1.0); Bun/Creatinine Ratio 23.9 (12.0-20.0); Calcium, Blood 8.9 mg/dL (8.5-10.1); Creatinine, Blood 0.71 mg/dL (0.40-1.00); Potassium, Blood 3.9 mmol/L (3.5-5.5); Total Protein, Blood 6.3 g/dL (6.4-8.2)
[2024-09-01 02:20] LABS: BASOPHILS ABSOLUTE AUTO 0.04 K/mm3 (0.00-0.23); BASOPHILS PERCENT AUTO 1 % (0-2); EOSINOPHILS ABSOLUTE AUTO 0.03 K/mm3 (0.00-0.68); EOSINOPHILS PERCENT AUTO 1 % (0-6); Hematocrit 41.2 % (33.0-51.0); Hemoglobin 14.3 g/dL (11.5-16.0); IMMATURE GRAN ABSOLUTE AUTO 0.03 K/mm3 (0.00-0.10); IMMATURE GRAN PERCENT AUTO 1 % (0-1); LYMPHOCYTES PERCENT AUTO 17 % (21-46); MONOCYTES ABSOLUTE AUTO 0.76 K/mm3 (0.16-1.47); MONOCYTES PERCENT AUTO 12 % (4-13); Mean Corpuscular HGB 32.2 pg (26.0-34.0); Mean Corpuscular HGB Conc 34.7 g/dL (31.5-36.5); Mean Corpuscular Volume 93 fL (80-100); Mean Platelet Volume 10.6 fL (9.1-12.4); NEUTROPHILS ABSOLUTE AUTO 4.64 K/mm3 (1.96-9.15); NEUTROPHILS PERCENT AUTO 70 % (41-73); Platelet Count 199 K/mm3 (150-400); RDW Coefficient Variation 13.5 % (11.7-14.2); RDW Standard Deviation 45.9 fL (35.1-46.3); Red Blood Cell Count 4.44 M/mm3 (3.80-5.20)
[2024-09-01 04:16] LABS: Source, Urine Clean Catch
[2024-09-01 04:23] LABS: Bilirubin, Urine Neg (Neg); Blood, Urine Neg (Neg); Glucose Qualitative, Urine Neg (Neg); Ketones, Urine 1+ (Neg); Leukocyte Esterase, Urine 2+ (Neg); Nitrite, Urine Neg (Neg); Protein, Urine Neg (Neg); Urobilinogen, Urine NORM (Normal)
[2024-09-01 04:50] LABS: Appearance, Urine Hazy (Clear); Color, Urine Yellow (P-Yellow)
[2024-09-01 04:51] LABS: Bacteria Mod /hpf; Red Blood Cells, Urine 0-2 /hpf (0-2); Squamous Epithelial Cells Mod /hpf (Few)
[2024-09-01] MEDS ORDERED: CEPH500 PO (05:04)
[2024-09-01] MEDS ORDERED: Cephalexin Monohydrate 500 MG Cap PO ONE (05:05)
[2024-09-01] MEDS ORDERED: Cephalexin Monohydrate 500 MG Cap PO SCH (21:00)
== END 2024-09-01 10:46 | disposition home or self-care (01) ==
LOC: ER 23:39
PROVIDERS: Emergency Medicine
DX: N39.0 Urinary tract infection, site not specified (principal); R41.3 Other amnesia; I10 Essential (primary) hypertension; K21.9 Gastro-esophageal reflux disease without esophagitis; Z79.51 Long term (current) use of inhaled steroids
CPT/HCPCS: 80053; 81001; 85025; 87086; 99285; A9270

== ENCOUNTER → 2024-09-19 | Outpatient (CLI) | payer OTHER ==
[~2024-09-19] MED LIST changes: +ACET500 PO; +CEPH500 PO; +LIDO700A20 TOP
[2024-09-19 10:39] LABS: BASOPHILS ABSOLUTE AUTO 0.02 K/mm3 (0.00-0.23); BASOPHILS PERCENT AUTO 0 % (0-2); EOSINOPHILS ABSOLUTE AUTO 0.02 K/mm3 (0.00-0.68); EOSINOPHILS PERCENT AUTO 0 % (0-6); Hematocrit 42.8 % (33.0-51.0); Hemoglobin 14.4 g/dL (11.5-16.0); IMMATURE GRAN ABSOLUTE AUTO 0.03 K/mm3 (0.00-0.10); IMMATURE GRAN PERCENT AUTO 0 % (0-1); LYMPHOCYTES ABSOLUTE AUTO 0.86 K/mm3 (0.84-5.20); LYMPHOCYTES PERCENT AUTO 12 % (21-46); MONOCYTES ABSOLUTE AUTO 0.64 K/mm3 (0.16-1.47); MONOCYTES PERCENT AUTO 9 % (4-13); Mean Corpuscular HGB 31.4 pg (26.0-34.0); Mean Corpuscular HGB Conc 33.6 g/dL (31.5-36.5); Mean Corpuscular Volume 93 fL (80-100); Mean Platelet Volume 9.7 fL (9.1-12.4); NEUTROPHILS ABSOLUTE AUTO 5.74 K/mm3 (1.96-9.15); NEUTROPHILS PERCENT AUTO 78 % (41-73); Platelet Count 239 K/mm3 (150-400); RDW Coefficient Variation 13.6 % (11.7-14.2); RDW Standard Deviation 46.8 fL (35.1-46.3); Red Blood Cell Count 4.59 M/mm3 (3.80-5.20); White Blood Cell Count 7.31 K/mm3 (4.00-11.30)
== END | disposition home or self-care (01) ==
LOC: LAB SHORT 10:36 → LAB 10:36
PROVIDERS: Physician Assistant
DX: R10.9 Unspecified abdominal pain (principal)
CPT/HCPCS: 85025

== ENCOUNTER 2024-09-20 14:07 | Emergency (ER) | payer OTHER ==
[~2024-09-20] VITALS: Ht 172.7 cm; Wt 77.1 kg
[~2024-09-20 14:07] MED LIST changes: -ACET500 PO; -LIDO700A20 TOP
[2024-09-20 14:38] VITALS: BP 123/95
[2024-09-26] MEDS ORDERED: LIDO700A20 TOP (15:19)
[2024-09-26] MEDS ORDERED: ACET500 PO (15:19)
== END 2024-09-20 17:14 | disposition home or self-care (01) ==
LOC: ER 14:07
DX: M48.56XA Collapsed vertebra, not elsewhere classified, lumbar region, initial encounter for fracture (principal); I10 Essential (primary) hypertension; K21.9 Gastro-esophageal reflux disease without esophagitis; Z79.51 Long term (current) use of inhaled steroids; R10.9 Unspecified abdominal pain; Z79.899 Other long term (current) drug therapy
CPT/HCPCS: 85025; 99283-25

== ENCOUNTER 2024-09-22 20:31 | Emergency (ER) | payer OTHER ==
[~2024-09-22] VITALS: Ht 165.1 cm; Wt 77.1 kg
[2024-09-22 20:34] VITALS: BP 157/112
[2024-09-22] MEDS ORDERED: Ketorolac Tromethamine 15mg Vial IM ONE (23:35)
[2024-09-22] MEDS ORDERED: RX Prepack 6 Tabs Oxycodone 5mg UD ONE (23:40)
[2024-09-26] MEDS ORDERED: ACET500 PO (15:19)
[2024-09-26] MEDS ORDERED: LIDO700A20 TOP (15:19)
== END 2024-09-22 23:49 | disposition home or self-care (01) ==
LOC: ER 20:31
DX: G89.29 Other chronic pain (principal); M54.50 Low back pain, unspecified; I10 Essential (primary) hypertension; K21.9 Gastro-esophageal reflux disease without esophagitis; Z79.01 Long term (current) use of anticoagulants; Z79.51 Long term (current) use of inhaled steroids; Z79.1 Long term (current) use of non-steroidal anti-inflammatories (NSAID); Z79.899 Other long term (current) drug therapy; Z79.83 Long term (current) use of bisphosphonates; Z79.891 Long term (current) use of opiate analgesic; Z79.2 Long term (current) use of antibiotics
CPT/HCPCS: 96372; 99283-25; A9270; J1885

== ENCOUNTER 2024-09-23 17:59 | Emergency (ER) | payer OTHER ==
[~2024-09-23] VITALS: Ht 165.1 cm; Wt 78.0 kg
[2024-09-23 18:22] VITALS: BP 141/95
[2024-09-26] MEDS ORDERED: LIDO700A20 TOP (15:19)
[2024-09-26] MEDS ORDERED: ACET500 PO (15:19)
== END 2024-09-23 19:40 | disposition home or self-care (01) ==
LOC: ER 17:59
DX: Z60.4 Social exclusion and rejection (principal); Z59.819 Housing instability, housed unspecified; Z79.51 Long term (current) use of inhaled steroids; Z79.899 Other long term (current) drug therapy
CPT/HCPCS: 99283

== ENCOUNTER 2024-09-25 10:37 | Emergency (ER) | payer OTHER ==
[~2024-09-25] VITALS: Ht 167.6 cm; Wt 72.6 kg
[2024-09-25 11:03] VITALS: BP 148/98
[2024-09-25] MEDS ORDERED: Aspirin 325 MG Tab PO ONE ×2 (11:25→11:35)
[2024-09-26] MEDS ORDERED: LIDO700A20 TOP (15:19)
[2024-09-26] MEDS ORDERED: ACET500 PO (15:19)
== END 2024-09-25 11:38 | disposition home or self-care (01) ==
LOC: ER 10:37
DX: G89.29 Other chronic pain (principal); M54.50 Low back pain, unspecified; K21.9 Gastro-esophageal reflux disease without esophagitis; I10 Essential (primary) hypertension; Z79.51 Long term (current) use of inhaled steroids; Z79.899 Other long term (current) drug therapy
CPT/HCPCS: 99283; A9270

== ENCOUNTER → 2024-09-26 | Emergency (ER) | payer OTHER ==
[~2024-09-26] VITALS: Ht 170.2 cm; Wt 80.7 kg
[~2024-09-26] MED LIST changes: +ACET500 PO; +Acetaminophen 500 MG Tab PO ONE; +Ketorolac Tromethamine 15mg Vial IM ONE; +LIDO700A20 TOP; +Morphine Sulfate 4 MG/1 ML Injection IV ONE; +OxyCODONE 10/Acetamin 325 TABLET PO ONE
[2024-09-26 14:37] VITALS: BP 161/87
== END ==
LOC: ER 10:19
DX: S32.049A Unspecified fracture of fourth lumbar vertebra, initial encounter for closed fracture (principal); S32.019A Unspecified fracture of first lumbar vertebra, initial encounter for closed fracture; S32.029A Unspecified fracture of second lumbar vertebra, initial encounter for closed fracture; S32.039A Unspecified fracture of third lumbar vertebra, initial encounter for closed fracture; I10 Essential (primary) hypertension; K21.9 Gastro-esophageal reflux disease without esophagitis; Z79.2 Long term (current) use of antibiotics; Z79.899 Other long term (current) drug therapy; W18.30XA Fall on same level, unspecified, initial encounter
CPT/HCPCS: 72131; A9270; J1885; J2270

== ENCOUNTER 2024-10-20 02:35 | Day surgery (SDC) | payer OTHER ==
[~2024-10-20 02:35] MED LIST changes: -Acetaminophen 500 MG Tab PO ONE; -Ketorolac Tromethamine 15mg Vial IM ONE; -Morphine Sulfate 4 MG/1 ML Injection IV ONE; -OxyCODONE 10/Acetamin 325 TABLET PO ONE; +Ultram50 MG PO
[2024-10-20] MEDS ORDERED: Lidocaine HCl 4% Cream 5 GM ONE (08:10)
== END 2024-10-20 23:00 | disposition home or self-care (01) ==
LOC: WOUND 02:35
DX: L89.320 Pressure ulcer of left buttock, unstageable (principal); L89.892 Pressure ulcer of other site, stage 2; L89.152 Pressure ulcer of sacral region, stage 2
CPT/HCPCS: A6213; A9270; G0463

== ENCOUNTER 2024-10-23 13:10 | Emergency (ER) | payer OTHER ==
[~2024-10-23] VITALS: Ht 170.2 cm; Wt 56.7 kg
[2024-10-23 13:27] VITALS: BP 134/100
== END 2024-10-23 17:16 | disposition home or self-care (01) ==
LOC: ER 13:10
DX: M54.50 Low back pain, unspecified (principal); G89.29 Other chronic pain; L30.4 Erythema intertrigo; I10 Essential (primary) hypertension; K21.9 Gastro-esophageal reflux disease without esophagitis; Z79.899 Other long term (current) drug therapy; Z59.89 Other problems related to housing and economic circumstances
CPT/HCPCS: 72100; 99283-25

== ENCOUNTER 2024-10-25 15:01 | Emergency (ER) | payer OTHER ==
[~2024-10-25] VITALS: Ht 162.6 cm; Wt 59.0 kg
[2024-10-25 15:35] VITALS: BP 154/103
[2024-10-25] MEDS ORDERED: Morphine Sulfate 4 MG/1 ML Injection IM ONE (15:40)
[2024-10-25] MEDS ORDERED: Ketorolac Tromethamine 15mg Vial IM ONE (15:40)
[2024-10-25] MEDS ORDERED: Acetaminophen 500 MG Tab PO ONE (15:40)
[2024-10-25] MEDS ORDERED: Lidocaine 4% 1 Patch TOP ONE (15:40)
[2024-10-26] MEDS ORDERED: TRAM50 PO (10:47)
== END 2024-10-25 18:37 | disposition home or self-care (01) ==
LOC: ER 15:01
DX: M48.56XA Collapsed vertebra, not elsewhere classified, lumbar region, initial encounter for fracture (principal); I10 Essential (primary) hypertension; K21.9 Gastro-esophageal reflux disease without esophagitis
CPT/HCPCS: 96372; 99283-25; A9270; J1885; J2270

== ENCOUNTER 2024-10-26 07:50 | Emergency (ER) | payer OTHER ==
[~2024-10-26] VITALS: Ht 175.3 cm; Wt 56.7 kg
[2024-10-26] MEDS ORDERED: TRAM50 PO (10:47)
[2024-10-26] MEDS ORDERED: Lidocaine 4% 1 Patch TOP ONE (10:50)
[2024-10-26] MEDS ORDERED: TraMADol HCl 50 MG Tab PO ONE (10:50)
[2024-10-26] MEDS ORDERED: Ketorolac Tromethamine 30mg Vial IM ONE (10:50)
[2024-10-26 11:22] VITALS: BP 152/84
== END 2024-10-26 11:31 | disposition home or self-care (01) ==
LOC: ER 07:50
DX: S32.029D Unspecified fracture of second lumbar vertebra, subsequent encounter for fracture with routine healing (principal); S32.039D Unspecified fracture of third lumbar vertebra, subsequent encounter for fracture with routine healing; S32.049D Unspecified fracture of fourth lumbar vertebra, subsequent encounter for fracture with routine healing; S32.059D Unspecified fracture of fifth lumbar vertebra, subsequent encounter for fracture with routine healing; S32.019D Unspecified fracture of first lumbar vertebra, subsequent encounter for fracture with routine healing; X58.XXXA Exposure to other specified factors, initial encounter; I10 Essential (primary) hypertension; K21.9 Gastro-esophageal reflux disease without esophagitis
CPT/HCPCS: 72131; 96372; 99283-25; A9270; J1885

== ENCOUNTER → 2024-10-27 | Emergency (ER) | payer OTHER ==
[~2024-10-27] VITALS: Ht 172.7 cm; Wt 61.2 kg
[~2024-10-27] MED LIST changes: +TRAM50 PO
== END ==
LOC: ER 07:32
DX: M48.56XA Collapsed vertebra, not elsewhere classified, lumbar region, initial encounter for fracture (principal); I10 Essential (primary) hypertension; K21.9 Gastro-esophageal reflux disease without esophagitis
CPT/HCPCS: 99283

== ENCOUNTER 2024-10-31 17:37 | Inpatient (IN) | payer OTHER ==
[~2024-10-31] VITALS: Ht 172.7 cm; Wt 68.6 kg
[2024-10-31] MEDS ORDERED: Lactated Ringer's 1,000 ML IV ONE (18:00)
[2024-10-31 18:21] LABS: BASOPHILS ABSOLUTE AUTO 0.04 K/mm3 (0.00-0.23); BASOPHILS PERCENT AUTO 0 % (0-2); EOSINOPHILS PERCENT AUTO 0 % (0-6); Hemoglobin 17.8 g/dL (11.5-16.0); IMMATURE GRAN ABSOLUTE AUTO 0.18 K/mm3 (0.00-0.10); IMMATURE GRAN PERCENT AUTO 1 % (0-1); LYMPHOCYTES ABSOLUTE AUTO 0.61 K/mm3 (0.84-5.20); LYMPHOCYTES PERCENT AUTO 4 % (21-46); MONOCYTES ABSOLUTE AUTO 1.01 K/mm3 (0.16-1.47); MONOCYTES PERCENT AUTO 6 % (4-13); Mean Corpuscular HGB 31.6 pg (26.0-34.0); Mean Corpuscular HGB Conc 33.6 g/dL (31.5-36.5); Mean Corpuscular Volume 94 fL (80-100); NEUTROPHILS ABSOLUTE AUTO 14.53 K/mm3 (1.96-9.15); NEUTROPHILS PERCENT AUTO 89 % (41-73); Platelet Count 291 K/mm3 (150-400); RDW Coefficient Variation 14.9 % (11.7-14.2); RDW Standard Deviation 51.1 fL (35.1-46.3); Red Blood Cell Count 5.63 M/mm3 (3.80-5.20); White Blood Cell Count 16.37 K/mm3 (4.00-11.30)
[2024-10-31 18:43] LABS: Free Thyroxine 1.47 ng/dL (0.70-1.60); Magnesium, Blood 2.4 mg/dL (1.6-2.4); Salicylate <1.7 mg/dL (2.8-20.0)
[2024-10-31 18:44] LABS: Thyroid Stimulating Hormone 0.605 uIU/mL (0.360-4.800)
[2024-10-31 18:55] LABS: Acetaminophen, Random <2.0 ug/mL (10.0-30.0); Alanine Aminotransfer (ALT/SGP 40 U/L (12-78); Albumin, Blood 3.1 g/dL (3.4-5.0); Albumin/Globulin Ratio 0.8 (0.8-1.8); Alk Phos 131 U/L (50-136); Anion Gap 14 mmol/L (3-11); Aspartate Aminotrans (AST/SGOT 65 U/L (12-37); Bilirubin, Total 1.1 mg/dL (0.1-1.0); Blood Urea Nitrogen 50 mg/dL (8-24); Bun/Creatinine Ratio 46.3 (12.0-20.0); CO2, Blood 32 mmol/L (21-32); Calcium, Blood 9.5 mg/dL (8.5-10.1); Chloride, Blood 98 mmol/L (98-108); Creatinine, Blood 1.08 mg/dL (0.40-1.00); Globulin, Blood 3.7 g/dL (2.2-4.0); Glomerular Filtration Rate 49 (60-); Glucose, Blood 140 mg/dL (70-99); Sodium, Blood 140 mmol/L (136-145); Total Protein, Blood 6.8 g/dL (6.4-8.2)
[2024-10-31] MEDS ORDERED: NS 1,000 ML IV SCH (19:45)
[2024-10-31] MEDS ORDERED: CefTRIAXone Sodium 1,000 MG in NS 100 ML IV ONE (19:45)
[2024-10-31 21:37] LABS: Source, Urine Straight Cath
[2024-10-31 21:43] LABS: Bilirubin, Urine Neg (Neg); Blood, Urine 1+ (Neg); Color, Urine Yellow (P-Yellow); Glucose Qualitative, Urine Neg (Neg); Ketones, Urine Neg (Neg); Leukocyte Esterase, Urine Neg (Neg); Nitrite, Urine Neg (Neg); Protein, Urine 2+ (Neg); Specific Gravity, Urine 1.025 (1.003-1.022); Urobilinogen, Urine NORM (Normal)
[2024-10-31 21:48] LABS: Appearance, Urine Hazy (Clear)
[2024-10-31 21:49] LABS: Amorphous Light (0-Heavy); Bacteria Rare /hpf; Hyaline Casts 0-2 /lpf (0-2); Red Blood Cells, Urine 0-2 /hpf (0-2); Squamous Epithelial Cells Not Seen /hpf (Few); White Blood Cells, Urine 0-2 /hpf (0-5)
[2024-10-31 21:53] LABS: U Amphetamine Screen Not Detected; U Barbituate Screen Not Detected; U Benzodiazapine Screen Not Detected; U Buprenorphine Screen Not Detected; U Cannabinoids Screen Not Detected; U Cocaine Screen Not Detected; U Methadone Screen Not Detected; U Methamphetamine Screen Not Detected; U Opiates Screen Not Detected; U Oxycodone Screen Not Detected; U Phencyclidine Screen Not Detected
[2024-10-31] MEDS ORDERED: Ondansetron HCl 2 MG / ML 2ML Vial IV PRN (23:05)
[2024-10-31] MEDS ORDERED: FLU VACC TS2024-25(6MOS UP)/PF 45 MCG/0.5 ML SYRINGE IM ONE (23:10)
[2024-10-31] MEDS ORDERED: Lactated Ringer's 1,000 ML IV SCH (23:14)
[2024-11-01] VITALS (15 sets, daily range): BP systolic 101–150; BP diastolic 76–108
[2024-11-01] MEDS ORDERED: CeFAZolin Sodium 1,000 MG in NS 50 ML IV SCH
[2024-11-01 03:33] LABS: BASOPHILS ABSOLUTE AUTO 0.02 K/mm3 (0.00-0.23); BASOPHILS PERCENT AUTO 0 % (0-2); EOSINOPHILS ABSOLUTE AUTO 0.01 K/mm3 (0.00-0.68); EOSINOPHILS PERCENT AUTO 0 % (0-6); Hematocrit 45.4 % (33.0-51.0); IMMATURE GRAN ABSOLUTE AUTO 0.13 K/mm3 (0.00-0.10); IMMATURE GRAN PERCENT AUTO 1 % (0-1); LYMPHOCYTES ABSOLUTE AUTO 0.65 K/mm3 (0.84-5.20); LYMPHOCYTES PERCENT AUTO 4 % (21-46); MONOCYTES ABSOLUTE AUTO 1.33 K/mm3 (0.16-1.47); MONOCYTES PERCENT AUTO 8 % (4-13); Mean Corpuscular HGB 31.5 pg (26.0-34.0); Mean Corpuscular Volume 95 fL (80-100); Mean Platelet Volume 10.6 fL (9.1-12.4); NEUTROPHILS ABSOLUTE AUTO 13.93 K/mm3 (1.96-9.15); NEUTROPHILS PERCENT AUTO 87 % (41-73); Platelet Count 266 K/mm3 (150-400); RDW Coefficient Variation 14.9 % (11.7-14.2); RDW Standard Deviation 52.1 fL (35.1-46.3); Red Blood Cell Count 4.76 M/mm3 (3.80-5.20); White Blood Cell Count 16.07 K/mm3 (4.00-11.30)
[2024-11-01 03:52] LABS: Albumin, Blood 2.4 g/dL (3.4-5.0); Albumin/Globulin Ratio 0.7 (0.8-1.8); Bilirubin, Total 0.7 mg/dL (0.1-1.0); Bun/Creatinine Ratio 43.8 (12.0-20.0); Calcium, Blood 8.6 mg/dL (8.5-10.1); Creatinine, Blood 1.05 mg/dL (0.40-1.00); Globulin, Blood 3.5 g/dL (2.2-4.0); Magnesium, Blood 2.1 mg/dL (1.6-2.4); Potassium, Blood 2.9 mmol/L (3.5-5.5); Total Protein, Blood 5.9 g/dL (6.4-8.2)
[2024-11-01] MEDS ORDERED: Potassium Chl 20MEQ/Water100ML 100 ML IV SCH (04:05)
[2024-11-01] MEDS ORDERED: Potassium Chloride 20 MEQ in NS 90 ML IV SCH (04:10)
--- NOTE | 2024-11-01 06:46 | NUR ---
END OF SHIFT: THIS PT CAME TO ICU AT AROUND 0130 THIS MORNING AND HAS BEEN PLEASANTLY CONFUSED. SHE SLEPT MOST OF THE NIGHT AND HAD NO ACUTE EVENTS OCCUR. CURRENTLY RESTING IN BED WATCHING TV. POTASSIUM BEING REPLACED.
--- NOTE | 2024-11-01 07:07 | NUR ---
NURSE NOTE: WHEN PATIENT CAME TO ICU, A SKIN ASSESSMENT WAS PERFORMED. UPON ASSESSMENT, MULTIPLE SKIN TEARS AND ABRASIONS WERE FOUND. HOSPITALIST WAS NOTIFIED OF THESE, AND WAS ALSO PHOTOGRAPHED, PRINTED AND PLACED IN THE PATIENT CHART.
[2024-11-01] MEDS ORDERED: Lactobacil 2-S.Thermo-Bifido 1 1 Cap PO SCH (09:00)
[2024-11-01] MEDS ORDERED: Enoxaparin 40 MG/0.4 ML SYR SC SCH (09:00)
--- NOTE | 2024-11-01 11:24 | NUR ---
AM NOTE.... ASSUMED CARE OF PT AT 0700, PT IS A&Ox3 JUST CONFUSED ON WHAT THE MONTH WAS. PT IS IN SINUS TACH IN THE 110'S TO THE 130'S WITH ACTIVITY. PT'S BP IS STABLE. L/S CLEAR T/O ON RA WITH O2 SATS>95%. BT PRESENT AND HYPOACTIVE. PT IS PLEASENT AND COOPERATIVE WITH CARE DURING THIS ASSESSMENT. PT WAS A 1P ASSIST TO THE BSC TO VOID.
[2024-11-01] MEDS ORDERED: METO25ER PO (12:12)
[2024-11-01] MEDS ORDERED: CALCITONIN SAL (12:14)
--- NOTE | 2024-11-01 13:56 | NUR ---
PT UPDATE... SPOKE WITH THE PT'S BROTHER JENI (PHONE NUMBER: [phone]) WHO LIVES IN [place]. PT'S BROTHER STATED THAT DIPAK "HOARDS THOUSANDS OF DOLLARS OF FOOD BUT REFUSES TO EAT ANY OF IT." THE PT'S BOTHER STATED HE CAME TO HER HOUSE APROX 6MONTHS AGO AND NOTED THE PT'S HOME WAS "SAD AND PATHETIC" BECAUSE OF "ALL THE FOOD AND GARBAGE" ON THE FLOOR AND IT WAS HARD TO MOVE AROUND IN.
[2024-11-01] MEDS ORDERED: GABA100 PO (15:09)
[2024-11-01] MEDS ORDERED: TraMADol HCl 50 MG Tab PO PRN (15:20)
[2024-11-01] MEDS ORDERED: Acetaminophen 500 MG Tab PO PRN (15:20)
[2024-11-01] MEDS ORDERED: Metoprolol Succinate 25 MG TABCR PO SCH (16:00)
[2024-11-01] MEDS ORDERED: Silver Sulfadiazine 1% Cream 25 APPLIC/25 GM Tube TOP SCH (18:15)
--- NOTE | 2024-11-01 18:18 | NUR ---
SHIFT SUMMARY... NO ACUTE NEGATIVE CHANGES NOTED THIS SHIFT. PT WAS GIVEN A SHOWER THIS AFTERNOON. PT CONTINUES TO BE IN SINUS TACH 100'S-120'S UP TO THE 130'S WITH ACTIVITY. PT IS A 1P TRANSFER WITH FWW AND GAITBELT TO THE BSC OR SHOWER CHAIR. PT WORKED WITH PT/OT THIS AFTERNOON. PODIATRY CONSULT WAS PLACED FOR THE WOUND TO THE TOP OF THE PT'S LEFT FOOT, DR. SHRESTHA WAS AT THE BEDSIDE TO ASSESS THE WOUND, NEW ORDERS FOR WOUND CARE WERE GIVEN. PT AHS NOT HAD A BM THIS SHIFT. ALL OF THE PT'S WOUNDS HAVE BEEN DOCUMENTED IN THE CHART AND PROVIDERS ARE AWARE.
[2024-11-01] MEDS ORDERED: Miconazole Nitrate 2% 85 GM PWD TOP SCH (21:00)
[2024-11-01] MEDS ORDERED: Losartan Potassium 50 MG Tab PO SCH (21:00)
[2024-11-02 03:52] VITALS: BP 123/70
[2024-11-02 04:16] LABS: BASOPHILS ABSOLUTE AUTO 0.02 K/mm3 (0.00-0.23); BASOPHILS PERCENT AUTO 0 % (0-2); EOSINOPHILS ABSOLUTE AUTO 0.01 K/mm3 (0.00-0.68); EOSINOPHILS PERCENT AUTO 0 % (0-6); Hematocrit 38.2 % (33.0-51.0); Hemoglobin 12.5 g/dL (11.5-16.0); IMMATURE GRAN ABSOLUTE AUTO 0.12 K/mm3 (0.00-0.10); IMMATURE GRAN PERCENT AUTO 1 % (0-1); LYMPHOCYTES ABSOLUTE AUTO 1.11 K/mm3 (0.84-5.20); LYMPHOCYTES PERCENT AUTO 10 % (21-46); MONOCYTES ABSOLUTE AUTO 0.89 K/mm3 (0.16-1.47); MONOCYTES PERCENT AUTO 8 % (4-13); Mean Corpuscular HGB 31.8 pg (26.0-34.0); Mean Corpuscular HGB Conc 32.7 g/dL (31.5-36.5); Mean Corpuscular Volume 97 fL (80-100); Mean Platelet Volume 10.3 fL (9.1-12.4); NEUTROPHILS PERCENT AUTO 81 % (41-73); Platelet Count 224 K/mm3 (150-400); RDW Coefficient Variation 15.1 % (11.7-14.2); RDW Standard Deviation 53.3 fL (35.1-46.3); Red Blood Cell Count 3.93 M/mm3 (3.80-5.20); White Blood Cell Count 11.45 K/mm3 (4.00-11.30)
[2024-11-02 04:58] LABS: Albumin/Globulin Ratio 0.6 (0.8-1.8); Bilirubin, Total 0.5 mg/dL (0.1-1.0); Bun/Creatinine Ratio 48.4 (12.0-20.0); Calcium, Blood 8.2 mg/dL (8.5-10.1); Creatinine, Blood 0.74 mg/dL (0.40-1.00); Globulin, Blood 3.1 g/dL (2.2-4.0); Magnesium, Blood 1.9 mg/dL (1.6-2.4); Phosphorus, Blood 2.1 mg/dL (2.5-4.9); Total Protein, Blood 5.1 g/dL (6.4-8.2)
--- NOTE | 2024-11-02 06:23 | NUR ---
SHIFT SUMMURY: PATIENT ALERT TO SELF WITH PERIODS OF CONFUSION. NORMAL SINUS RATE AT 74. OXYGEN SATURATION ABOVE 90. COMPLAINED OF LEFT FOOT PAIN TWICE, AND WAS MEDICATED. SLEPT THROUGH OUT THE NIGHT.ASSISTED TO THE BEDSIDE COMMODE AND WAS ABLE TO STAND AND PIVOT WITH I PERSON ASSIST.
[2024-11-02] MEDS ORDERED: Sodium Phosphate 20 MM in Dextrose 5% 500 ML IV STA (07:28)
[2024-11-02 08:34] VITALS: BP 130/85
[2024-11-02] MEDS ORDERED: Lidocaine 4% 1 Patch TOP SCH (09:00)
[2024-11-02] MEDS ORDERED: Calcitonin Salmon 3.7 ML Nasal Spray SCH (09:00)
[2024-11-02] MEDS ORDERED: HYDROcodone 5-APAP 325 TAB PO PRN (09:05)
--- NOTE | 2024-11-02 14:14 | NUR ---
SHIFT SUMMARY/ TRANSFER TO MEDICAL FLOOR: PT A&OX4, FOLLOWS COMMANDS AND MAKES NEEDS KNOWN TO STAFF. PT REMAINES ON RA DURING SHIFT. DENIES ANY CP OR SOB. VSS. MAP >65. PT WENT TO MRI TODAY AND HAD A R HIP XRAY DONE. APS CAME TO SEE PT. PT AGREEABLE FOR SNF AFTER DISCHARGE AT THIS TIME. NO SIGNIFICANT EVENTS HAPPENED DURING THIS SHIFT. REPORT GIVEN TO MEDICAL FLOOR RN. PTS BELONGINGS COLLECTED AND TAKEN TO ROOM 308 WITH PT VIA FILEMON.
[2024-11-02 14:24] VITALS: BP 120/70
--- NOTE | 2024-11-02 14:36 | NUR ---
PT ARRIVED TO ROOM, TOOK ALOT OF ENCOURAGING FOR PT TO TRANFER TO ROOM BED USING 2 PERSON ASSIST, BUT PT WAS ABLE TO PERFORM WITHOUT INJURY. 2 RN SKIN CHECK PERFORMED BY THIS RN AND COLTON PIERCE. INFORMED TELE OF PT TRANSFER SINUS RHYTHM 73 BPM. PT INTRODUCED TO ROOM. BED IN LOWEST POSITION, CALL LIGHT WITHIN REACH.
[2024-11-02] MEDS ORDERED: NS 250 ML IV PRN (15:10)
--- NOTE | 2024-11-02 15:10 | NUR ---
MET WITH PATIENT TO DISCUSS CODE STATUS. PATIENT WAS RESTING IN BED. DIFFICULT TO KEEP HER FOCUSED ON CONVERSATION. PROVIDED WARM BLANKETS. SHE EXPRESSED THAT SHE WOULD LIKE EVERYTHING DONE TO KEEP HER ALIVE OR RESUSCITATE IN THE EVENT HER HEART STOPPED. SHE REPORTED THAT SHE WOULD LIKE TO HAVE EVERYTHING DONE.
--- NOTE | 2024-11-02 17:00 | NUR ---
SHIFT SUMMARY PT AOX4, COOPERATIVE WITH ENCOURAGMENT, ABLE TO MAKE NEEDS KNOWN. TOLERATING PO AND IV MEDICATION. USES 2 PERSON HEAVY TRANSFER TO COMMODE TO VOID. TELE STILL ACTIVE. PT REPORTS HAVING SHORT TERM MEMORY LOSS AND NEEDS CONSTANT REINFORCING. BED IN LOWEST POSITION, CALL LIGHT WITHIN REACH.
[2024-11-02 19:45] VITALS: BP 107/71
[2024-11-03 03:25] VITALS: BP 118/73
--- NOTE | 2024-11-03 04:51 | NUR ---
SHIFT SUMMARY DIPAK WAS ALERT AND ORIENTED X3-4, WITH IMPROVEMENT T/O SHIFT. PT HAD AN UNEVENTFUL SHIFT. TELE AND CONT BIOX DC'D THIS SHIFT. MEDS WELL CONTROLLED AT THIS TIME. MEPLEXES REPLACED. NO ACUTE EVENTS NO NOTED CHANGES TO PT CONDITION.
[2024-11-03 07:20] VITALS: BP 125/83
[2024-11-03 08:58] LABS: Albumin, Blood 2.1 g/dL (3.4-5.0); Anion Gap 8 mmol/L (3-11); Blood Urea Nitrogen 20 mg/dL (8-24); Bun/Creatinine Ratio 34.3 (12.0-20.0); CO2, Blood 32 mmol/L (21-32); Calcium, Blood 8.4 mg/dL (8.5-10.1); Chloride, Blood 102 mmol/L (98-108); Creatinine, Blood 0.58 mg/dL (0.40-1.00); Glomerular Filtration Rate 87 (60-); Glucose, Blood 115 mg/dL (70-99); Potassium, Blood 3.5 mmol/L (3.5-5.5); Sodium, Blood 138 mmol/L (136-145)
[2024-11-03] MEDS ORDERED: Aspirin 81 MG TabEC PO SCH (09:00)
[2024-11-03] MEDS ORDERED: Potassium Phosphate Dibasic 30 MM in Dextrose 5% 500 ML IV STA (12:14)
[2024-11-03 15:34] VITALS: BP 143/80
--- NOTE | 2024-11-03 15:40 | NUR ---
RN NOTE MS GARCIA WAS MOVED FROM ROOM 308 TO ROOM 347. CARE ASSUMED AT 1500HRS. MS GARCIA IS ABLE TO TELL ME HER NAME, WHERE SHE IS, WHY SHE IS IN HOSPITAL, MONTH AND YEAR. SHE SAID SHE HAS VERY POOR SHORT TERM MEMORY. ENGAGING IN APPROPRIATE CONVERSATION. WOUND CARE DONE TO LEFT FOOT WITH SILVADENE CREAM, WOUNDS NOTED TO RIGHT SHOULDER, RIGHT HIP, LEFT INNER KNEE, HEELS RED, ABRASIONS TO CHIN AND FACE, ABRASIONS TO HANDS, MULTIPLE AREAS OF ECCHYMOSIS. PT RECIEVING POTASSIUM PHOSPHATE CURRENTLY. SHE SAID SHE HAS NOT EATEN AND DRANK MUCH TODAY SHE HAS NOT LIKED THE DIETARY CHOICES. GIVEN WARMED CHOCOLATE ENSURE. 4-5/10 PAIN TO LOWER BACK CURRENTLY WHICH SHE SAID IS TOLERABLE. BED LOW, CALL LIGHT IN REACH, BED ALARM ON.
--- NOTE | 2024-11-03 16:41 | NUR ---
RN NOTE MS GARCIA QUESTIONED WHERE SHE IS, DOES NOT REMEMBER THAT SHE IS IN THE HOSPITAL, VARYING ORIENTATION/CONFUSION. UP TO THE BATHROOM AND NEEDING A LOT OF VERBAL DIRECTION AND SOME LIFTING ASSISTANCE. WALKED WITH WALKER AND GAIT BELT.
--- NOTE | 2024-11-03 16:48 | NUR ---
TRANSFER - LATE ENTRY: PT TRANSFERRED TO ROOM 347 FROM 308 THIS SHIFT. PT A&O X2 WITH AM ASSESSMENT. UNABLE TO TELL STAFF WHY SHE IS HERE OR WHAT BROUGHT HER IN. STATES SHE HAS VERY SHORT MEMORY LOSS. PT WILL TURN RETAIL MANAGER LIGHT THEN INSTANTLY YELL OUT FOR "PAIN" OR "HELP ME." PT IN 05/26 PAIN T/O MORNING. MEDICATED PER EMAR FOR R. HIP PAIN. REPORT PROVIDED TO KARI SALDAÑA.
[2024-11-03 19:50] VITALS: BP 141/79
[2024-11-04 00:07] VITALS: BP 129/72
[2024-11-04 03:43] VITALS: BP 101/79
--- NOTE | 2024-11-04 05:00 | NUR ---
SHIFT SUMMARY PT ALERT ORIENTED TO SELF PLACE ABLE TO VERBALIZE NEEDS GETS UP TO THE COMMODE WITH 1 PERSON ASSIST. C/O GENERALIZED PAIN MEDICATED WITH NORCO WITH GOOD PAIN RELIEF. REMAINS ON ANCEF FOR UTI. TAKES ALL MEDS WHOLE. SHE HAS A SITTER AT BEDSIDE DUE TO CONTINUING TO TRY TO PULL OUT HER IV. VSS ON RA SATTING AT 96%. RESTING IN BED WITH CALL LIGHT IN REACH
[2024-11-04 05:49] LABS: Albumin, Blood 1.9 g/dL (3.4-5.0); Anion Gap 8 mmol/L (3-11); Blood Urea Nitrogen 17 mg/dL (8-24); Bun/Creatinine Ratio 34.6 (12.0-20.0); CO2, Blood 31 mmol/L (21-32); Chloride, Blood 100 mmol/L (98-108); Creatinine, Blood 0.49 mg/dL (0.40-1.00); Glomerular Filtration Rate 91 (60-); Glucose, Blood 108 mg/dL (70-99); Phosphorus, Blood 2.1 mg/dL (2.5-4.9); Potassium, Blood 3.5 mmol/L (3.5-5.5); Sodium, Blood 135 mmol/L (136-145)
[2024-11-04 07:14] VITALS: BP 161/93
[2024-11-04 11:52] VITALS: BP 133/87
--- NOTE | 2024-11-04 12:42 | NUR ---
DISCUSSED CASE WITH INTERDISCIPLINARY TEAM. PATIENT WILL HAVE A COG EVAL. SHE CURRENTLY HAS A SITTER SHE ALMOST FELL LAST NIGHT. DISCUSSED CASE WITH BEDSIDE RN AND REFINING MACHINE OPERATOR. PC WILL CONTINUE TO FOLLOW
[2024-11-04] MEDS ORDERED: Thiamine HCl 100 MG Tab PO SCH (15:10)
[2024-11-04 16:29] VITALS: BP 125/84
--- NOTE | 2024-11-04 17:20 | NUR ---
SHIFT SUMMARY MS GARCIA IS ABLE TO ANSWER ORIENTATION QUESTIONS MOST OF THE TIME, BUT IS FORGETFUL AND EASILY DISTRACTED. SHE HAS BEEN CALM MOST OF THE SHIFT, OCCASIONALLY USING THE CALL LIGHT, MOST OF THE TIME CALLING AT LOUD VOLUME WHEN SHE NEEDS HELP. SHE HAS NOT TRIED TO GET UP OUT OF BED OR CHAIR WITHOUT ASSISTANCE. SHE HAS RED FUNGAL AREA BENIETH HER BREASTS THAT WAS CLEANSED AND NYSTATIN POWDER APPLIED. WOUNDS TO LEFT FOOT, LEFT INNER KNEE, RIGHT HIP, RIGHT HAND AND RIGHT SHOULDER CLEANSED AND REDRESSED. RIGHT HAND IS SWOLLEN, ENCOURAGED TO ELEVATE ON A PILLOW. ONE PERSON ASSISTANCE WITH GAIT BELT AND WHEELCHAIR TO THE BATHROOM, CONTINENT OF URINE. DISCOURAGED FROM USING THE BEDSIDE COMMODE. BED LOW, BED ALARM ON, CALL LIGHT IN REACH.
[2024-11-04] MEDS ORDERED: FentaNYL Citrate 50 MCG/ML 2 ML Injection IV ONE (17:50)
--- NOTE | 2024-11-04 18:47 | NUR ---
RN NOTE BACK FROM MRI. PER ROOM ATTENDANTS PT TOLERATED PART OF THE MRI SCAN. SHE WAS PREMEDICATED WITH FENTANYL. SHE REPORTS THAT IT WAS NOISY, THAT HER BACK HURT DURING THE EXAM. BACK IN BED, HEATING PAD ON HER BACK.
[2024-11-04] MEDS ORDERED: Potassium Phosphate,Monobasic 500 MG Tablet PO SCH (19:00)
[2024-11-04 19:11] VITALS: BP 122/77
--- NOTE | 2024-11-05 05:22 | NUR ---
SHIFT SUMMARY NOC PT A/O X 3. LABILE, BUT COOPERATIVE WITH CARE. VSS. HS CBG 108. PT USES CALL LIGHT INAPPROPRIATELY AND EXCESSIVELY AND YELLS OUT PT PAIN BEING MANAGED PER EMAR. DRESSINGS IN PLACE PER ORDER C/D/I. PT IS EAGER TO GET TO SNF TO GET STRONGER. PT IS AWAITING INSURANCE APPROVAL FOR SNF [facility]. PT CURRENTLY RESTING WITH BED ALARM ON, BED IN LOWEST POSITION, AND CALL LIGHT WITHIN REACH.
[2024-11-05 06:05] LABS: Anion Gap 6 mmol/L (3-11); Blood Urea Nitrogen 11 mg/dL (8-24); Bun/Creatinine Ratio 20.1 (12.0-20.0); CO2, Blood 33 mmol/L (21-32); Calcium, Blood 8.3 mg/dL (8.5-10.1); Chloride, Blood 101 mmol/L (98-108); Creatinine, Blood 0.55 mg/dL (0.40-1.00); Glomerular Filtration Rate 88 (60-); Glucose, Blood 100 mg/dL (70-99); Phosphorus, Blood 2.1 mg/dL (2.5-4.9); Potassium, Blood 3.7 mmol/L (3.5-5.5); Sodium, Blood 136 mmol/L (136-145)
[2024-11-05 06:28] VITALS: BP 154/94
[2024-11-05 07:24] VITALS: BP 144/95
[2024-11-05] MEDS ORDERED: Multivitamins 1 Tab PO SCH (09:00)
[2024-11-05 15:32] VITALS: BP 144/96
--- NOTE | 2024-11-05 17:14 | NUR ---
SHIFT SUMMARY PT AOX3/4, COOPERATIVE, ABLE TO MAKE NEEDS KNOWN. PT USES CALL LIGHT EXCESSIVELY EVEN WITH REINFORCED EDUCATION. CONTINENT, USES COMMODE FREQUENTLY, VOIDING MINIMAL AT A TIME. TOLERATING PO AND IV MEDICATION. TRANSFERRING VIA 1 PERSON ASSIST. PT LACKS MOTIVATION TO PARTICIPATE IN CARE UNLESS SHE IS "IN THE MOOD". BED ALARM ACTIVE. BED IN LOWEST POSITION, CALL LIGHT WITHIN REACH.
[2024-11-05 19:43] VITALS: BP 150/93
[2024-11-05] MEDS ORDERED: TraZODone HCl 50 MG Tab PO SCH (21:00)
[2024-11-05] MEDS ORDERED: Gabapentin 100 MG Cap PO SCH (21:00)
[2024-11-05] MEDS ORDERED: Melatonin 5 MG Tablet PO SCH (21:00)
[2024-11-05] MEDS ORDERED: CeFAZolin Sodium 1000 mg Vial ONE (23:49)
[2024-11-06 04:48] VITALS: BP 146/105
--- NOTE | 2024-11-06 05:40 | NUR ---
SHIFT SUMMARY NOC PT A/O X 3. COOPERATIVE WITH CARE, BUT CAN BE OBSTINATE AT TIMES. PT IS HIGH FALL RISK DUE TO SEVERE DECONDITIONING AND RECENT FALLS AT HOME, BUT IS REFUSING FWW AND ASSISTENCE TO AMBULATE FROM TO BSC AND BACK TO BED. PT EVENTUALLY AGREES AFTER RATIONALE GIVEN. PT ATTEMPTED OOB UNSAFE MULTIPLE TIMES DURING SHIFT TO USE BSC DUE TO URGENCY/FREQUENCY, BUT HAS SCANT OUTPUT. PT BLADDER SCANNED AT BEGINNING OF SHIFT AND FOUND TO HAVE 77 ML RETENTION POST VOID. PT INTIALLY REFUSED BEDTIME MEDICATIONS, BUT AGREED TO TAKE THEM AFTER BEING GIVEN REASON WHY THEY ARE TAKING THEM. PT TOOK FIRST DOSES OF TRAZADONE/MELATONIN AT BEDTIME AND SLEPT BETTER THAN PREVIOUS NIGHT. THEY ALSO ATTEMPTED TO PULL OUT IV SITE ONCE, DUE TO NOT FEELING LIKE THEY NEEDED TO HAVE IT FOR TREATMENT. MULTIPLE DRESSING SCATTERED T/O FROM RECENT FALLS C/D/I. PT AWAITING INSURANCE AUTHORIZATION FOR PLACEMENT AT [facility]. PT CURRENTLY RESTING WITH BED ALARM ON, BED IN LOWEST POSITION, AND CALL LIGHT WITHIN REACH.
[2024-11-06 06:01] LABS: Albumin, Blood 2.1 g/dL (3.4-5.0); Anion Gap 5 mmol/L (3-11); Blood Urea Nitrogen 11 mg/dL (8-24); Bun/Creatinine Ratio 21.3 (12.0-20.0); CO2, Blood 32 mmol/L (21-32); Calcium, Blood 8.4 mg/dL (8.5-10.1); Chloride, Blood 100 mmol/L (98-108); Creatinine, Blood 0.52 mg/dL (0.40-1.00); Glomerular Filtration Rate 89 (60-); Glucose, Blood 120 mg/dL (70-99); Phosphorus, Blood 2.2 mg/dL (2.5-4.9); Potassium, Blood 3.4 mmol/L (3.5-5.5); Sodium, Blood 134 mmol/L (136-145)
[2024-11-06 07:34] VITALS: BP 141/88
[2024-11-06] MEDS ORDERED: Polyethylene Glycol 3350 17 gm PO SCH (09:00)
[2024-11-06] MEDS ORDERED: Docusate Sodium 100 MG Cap PO SCH (09:00)
[2024-11-06 12:21] VITALS: BP 120/79
[2024-11-06 15:13] VITALS: BP 132/93
--- NOTE | 2024-11-06 18:34 | NUR ---
SHIFT SUMMARY PT A&OX3 W/ CONFUSION AND IMPULSIVITY AT TIMES, VSS, AMB W/ 1P ASSIST TO THE BSC, TOLERATING PO, VOIDING, AND PAIN MANAGED PER EMAR. IV ABX AND DRESSING CHANGES COMPLETED PER ORDER. CALL LIGHT WITHIN REACH AND BED ALARM ON FOR SAFETY.
[2024-11-06 19:28] VITALS: BP 122/73
[2024-11-06] MEDS ORDERED: QUEtiapine Fumarate 50 MG TAB PO ONE (19:40)
--- NOTE | 2024-11-07 05:22 | NUR ---
SHIFT SUMMARY NOC PT A/O X 3. SHORT TERM MEMORY POOR. PT IS IRRITABLE AND IMPATIENT YELLING AT STAFF FREQUENTLY AT BEGINNING OF SHIT. PT STILL EXTREMELY WEAK AND HAS TROUBLE TRANSFERRING TO BSC FROM BED AND BACK. PT URINARY FREQUENCY HAS DECREASED FROM PRIOR NIGHT. PT TOOK TRAZADONE FIRST DOSE LAST NIGHT WITH POOR EFFECT, SO THAT WAS DC AND NEW ORDER FOR SEROQUEL 50MG ONE TIME OBTAINED. SEROQUEL SEEMED TO HELP BETTER WITH AGITATION AND SLEEP. PT MULTIPLE DRESSING ARE C/D/I. PT CURRENTLY RESTING WITH BED ALARM ON, BED IN LOWEST POSITION, AND CALL LIGHT WITHIN REACH.
[2024-11-07 05:51] VITALS: BP 118/79
[2024-11-07 06:31] LABS: Anion Gap 8 mmol/L (3-11); Blood Urea Nitrogen 21 mg/dL (8-24); Bun/Creatinine Ratio 39.5 (12.0-20.0); CO2, Blood 31 mmol/L (21-32); Calcium, Blood 8.4 mg/dL (8.5-10.1); Chloride, Blood 101 mmol/L (98-108); Creatinine, Blood 0.53 mg/dL (0.40-1.00); Glomerular Filtration Rate 89 (60-); Glucose, Blood 126 mg/dL (70-99); Phosphorus, Blood 2.4 mg/dL (2.5-4.9); Potassium, Blood 3.8 mmol/L (3.5-5.5); Sodium, Blood 136 mmol/L (136-145)
[2024-11-07 07:21] VITALS: BP 137/91
[2024-11-07 16:59] VITALS: BP 118/81
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
[2024-11-07 19:51] VITALS: BP 140/74
[2024-11-08 04:29] VITALS: BP 125/87
--- NOTE | 2024-11-08 05:39 | NUR ---
SHIFT SUMMARY; PATIENT SLEPT IN SHORT INTERVALS. DOES NOT USE CALL LIGHT, CALLS OUT FOR EVERYTHING. MEDICATED FOR PAIN.
[2024-11-08 07:17] LABS: Albumin, Blood 2.3 g/dL (3.4-5.0); Anion Gap 6 mmol/L (3-11); Blood Urea Nitrogen 18 mg/dL (8-24); Bun/Creatinine Ratio 30.4 (12.0-20.0); CO2, Blood 34 mmol/L (21-32); Calcium, Blood 8.8 mg/dL (8.5-10.1); Chloride, Blood 100 mmol/L (98-108); Creatinine, Blood 0.59 mg/dL (0.40-1.00); Glomerular Filtration Rate 87 (60-); Glucose, Blood 99 mg/dL (70-99); Phosphorus, Blood 2.9 mg/dL (2.5-4.9); Potassium, Blood 4.4 mmol/L (3.5-5.5); Sodium, Blood 136 mmol/L (136-145)
[2024-11-08 08:01] VITALS: BP 140/85
[2024-11-08] MEDS ORDERED: Aspir 8181 MG PO (15:34)
[2024-11-08] MEDS ORDERED: LIDO700A20 TOP (15:34)
[2024-11-08] MEDS ORDERED: MELATONIN5 M1 PO (15:35)
[2024-11-08] MEDS ORDERED: MICONAZOLE NITR85 GM TOP (15:37)
[2024-11-08] MEDS ORDERED: SILVADENE20 G8 TOP (15:38)
[2024-11-08] MEDS ORDERED: MULVITA PO (15:38)
[2024-11-08] MEDS ORDERED: MIRALAX17 GM PO (15:38)
[2024-11-08] MEDS ORDERED: VITAMIN B-1100 M1 PO (15:39)
[2024-11-08] MEDS ORDERED: VISBIOME 112.51 EACH PO (15:40)
[2024-11-08] MEDS ORDERED: CEPH500 PO (15:41)
[2024-11-08 16:58] VITALS: BP 142/97
--- NOTE | 2024-11-08 17:48 | NUR ---
no changes for pt today. pt was again challenging with attitude and not being compliant
[2024-11-08 19:50] VITALS: BP 125/80
[2024-11-09] VITALS (18 sets, daily range): BP systolic 124–182; BP diastolic 88–135
--- NOTE | 2024-11-09 05:49 | NUR ---
SHIFT SUMMARY; PATIENT SLEPT IN SHORT INTERVALS, THEN IS UP TO BSC ABOUT EVERY 60-90 MIN.SCANT VOID AND SMEAR STOOL MEDICATED FOR PAIN.
[2024-11-09] MEDS ORDERED: Bisacodyl 10 MG Supp PR PRN (08:40)
[2024-11-09] MEDS ORDERED: Bisacodyl 5 MG TabEC PO PRN (08:40)
[2024-11-09] MEDS ORDERED: propofoL 20 ML IV ONE (10:14)
[2024-11-09] MEDS ORDERED: FentaNYL Citrate 50 MCG/ML 2 ML Injection ONE (10:14)
[2024-11-09] MEDS ORDERED: Phenylephrine HCl 100 MCG/ML-NS 10MLSYR (1MG/10ML) ONE (10:15)
[2024-11-09] MEDS ORDERED: Ondansetron HCl 2 MG / ML 2ML Vial ONE (10:15)
[2024-11-09] MEDS ORDERED: Lidocaine HCl 2% 20 ML MDV ONE ×2 (10:15→10:24)
[2024-11-09] MEDS ORDERED: Dexamethasone Sod Phos 10 MG/ML 1ML VIAL ONE (10:15)
[2024-11-09] MEDS ORDERED: Sugammadex Sodium 200 MG/2ML SDV (100 MG/ML) ONE (10:16)
[2024-11-09] MEDS ORDERED: NS 500 ML IV ONE (10:24)
[2024-11-09] MEDS ORDERED: Bupivacaine 0.5% HCl 5 MG/ML 30MLVIAL ONE (10:24)
[2024-11-09] MEDS ORDERED: Vancomycin HCL 1,000 MG in NS 250 ML IV SCH (10:55)
[2024-11-09] MEDS ORDERED: Lactated Ringer's 1,000 ML IV ONE ×2 (11:02→11:24)
[2024-11-09] MEDS ORDERED: Labetalol HCL 5 MG/ML 4ML Injection (Single Dose) ONE (13:42)
--- NOTE | 2024-11-09 13:44 | NUR ---
PATIENT ARRIVED TO RECOVERY ROOM WITH HOB FLAT. BP ELEVATED 5 MG IV LABETOLOL GIVEN PER ANESTHESIA. PATIENT MOVING ALL 4 EXTREMITIES. NEURO AT BASELINE. PATIENT UNABLE TO FOLLOW COMMANDS. PATIENT DENYING ANY PAIN.L
--- NOTE | 2024-11-09 14:05 | NUR ---
PATIENT DEPENDS CHANGED. MODERATE URINE OUTPUT. 2 DRESSINGS ON BACK C/D/I, NO EVIDENCE OF BLEEDING.
--- NOTE | 2024-11-09 14:12 | NUR ---
MD PRESENT AT BEDSIDE. PATIENT RIPPING LEADS AND WIRES OFF. RESTRAINTS IN PLACE. PATIENT MOVING ALL FOUR EXTREMITIES. PATIENT CALLING OUT FOR HELP BUT UNABLE TO STATE NEEDS. PATIENT DENYING ANY PAIN. PATIENT DENYING ANY FOOD OR DRINK.
--- NOTE | 2024-11-09 14:29 | NUR ---
BILATERAL SOFT WRIST RESTRAINTS AND LOWER EXTREMITY LEG RESTRAINT IN PLACE. PATIENT MOVING ALL FOUR EXTREMITIES. PATIENT YELLING OUT ASKING FOR HELP BUT NOT ABLE TO MAKE NEEDS KNOWN. NO EVIDENCE OF SKIN BREAK DOWN FROM RESTRAINTS. 2 BILATERAL BACK RESTRAINTS IN PLACE.
--- NOTE | 2024-11-09 14:36 | NUR ---
ADDITIONAL 5 MG IV LABETOLOL GIVEN PER ANESTEHSIA ORDER FOR HTN
--- NOTE | 2024-11-09 15:01 | NUR ---
BEDSIDE REPORT GIVEN TO YESSY PIERCE. PROCEDURE SITES REVIEWED.
--- NOTE | 2024-11-09 17:59 | NUR ---
PT RECEIVED BACK FROM PACU 1452, ALERT AND ORIENTED TO SELF ONLY, AWAKE AND INTERACTIVE, ANSWERS QUESTION. NEURO INTACT FOR THIS PATIENT. ABLE TO MOVE LEGS AND STATES NOMAL SENSATION BLE. PT IS LAYING FLAT 0 DEGREES UNTIL 1345. CHECKED INC SITES ON BACK, NO BLEEDING NOTED.. PT IS VERY RESTLESS AND AGITATED TRYING TO PULL OUT IV'S. ORDER OK'D FOR WRIST RESTRAINTS UNTIL PT SAFE. DR PARR INSTRUCTED RN TO MEDICATE PT FOR PAIN AND WILL RE'EVAL FOR BP MEDS.
[2024-11-09] MEDS ORDERED: FentaNYL Citrate 50 MCG/ML 2 ML Injection IV STA (18:01)
--- NOTE | 2024-11-09 18:05 | NUR ---
SUMMARY- PT A/O X2- FORGETFUL. PT AMBULATES TO BSC. REFUSED BREAKFAST, THAN NPO THIS AM FOR KYPHOPLASTY WITH DR BABB THIS AFTERNOON. RETURNTED BACK TO HER ROOM 1452, RESTLESS AND ATTEMPTING TO PULL IV OUT. STARTED ON WRIST RESTRAINTS 1600 TO PROTECT LINES. AT 1745 WHEN CHANGING INCONT AND CHECKING INC, NOTED L INC SITE SATURATED WITH BLOOD AND SEEPING ONTO MENJIVAR. CALLED DR BABB, INSTRUCTED TO APPLY PRESURE NEEDED TO CONTROL BLEEDING. BP ELEVATED DURING PROCEDURE AND AFTER. CAME DOWN AFTER MEDICATED WITH NORCO. WILL REPORT TO NOC RN
[2024-11-09] MEDS ORDERED: FentaNYL Citrate 50 MCG/ML 2 ML Injection IV PRN (19:00)
[2024-11-10 02:03] VITALS: BP 139/85
--- NOTE | 2024-11-10 06:03 | NUR ---
SHIFT SUMMARY PT CONFUSED/ ANXIOUS/ AGITATED/ PULLING AT LINES AND DRESSINGS AT START OF SHIFT. RESTRAINTS PER ORDER. AT 0200, PT AWAKENED ORIENTED AND ABLE TO FOLLOW COMMANDS. RESTRAINTS D/C'D. PT REMAINS FORGETFUL AND IMPULSIVE AT TIMES. BED ALARM ON. AT START OF SHIFT LEFT BACK INCISION WITH STEADY LEAK OF BLOODY DRAINAGE- PRESSURE DRESSING APPLIED AND NO FURTHER DRAINAGE NOTED THROUGH DRESSING. PT DENIES PAIN THROUGHOUT SHIFT. DRESSING CHANGED TO LEFT FOOT PER ORDER, AND DRESSINGS REPLACED TO RIGHT HAND AND LEFT KNEE. DUCOLOX SUPPOSITORY GIVEN THIS AM FOR CONSTIPATION WITH SMALL FORMED STOOL RESULTING. BED IN LOWEST POSITION, CALL LIGHT WITHIN REACH, SIDERAILS UP X2.
[2024-11-10 07:18] VITALS: BP 97/80
[2024-11-10 07:20] VITALS: BP 113/68
--- NOTE | 2024-11-10 07:38 | NUR ---
ASSUMPTION OF CARE: ASSUMED CARE OF PATIENT. AWAKE DURING SHIFT CHANGE REPORT. ANXIOUSLY USING CALL LIGHT, REQUESTING HELP CALLING "JENNI". THEN ASKING TO USE COMMODE, BACK TO BED AND THEN BACK TO COMMODE. BED IN LOWEST POSITION. CALL LIGHT WITHIN REACH. ACUTE NEEDS MET.
--- NOTE | 2024-11-10 12:03 | NUR ---
KAYLA ORTIZ AT BEDSIDE FOR ASSESSMENT.
[2024-11-10 14:29] VITALS: BP 111/68
--- NOTE | 2024-11-10 15:07 | NUR ---
Dr. Ocampo contacted regarding non-injury fall. Patient got out of bed and fell in bathroom. No injuries noted.
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
== END 2024-11-10 17:00 | DRG 853 ==
LOC: ER 17:37 → PCU 17:38 → ICUE 17:38 → PCU 11-01 15:12 → ICUE 11-01 15:12 → MEDS 11-01 15:12 → ICUE 11-01 15:12 → PCU 11-01 15:13 → ICUE 11-01 15:13 → PCU 11-01 18:55 → MEDS 11-02 14:30
PROVIDERS: Internal Medicine; Student in an Organized Health Care Education/Training Program; ADMIT Student in an Organized Health Care Education/Training Program
PROC: 3E03329 Introduction of Other Anti-infective into Peripheral Vein, Percutaneous Approach (ICD-10-PCS; 2024-10-31)
PROC: 0QU03JZ Supplement Lumbar Vertebra with Synthetic Substitute, Percutaneous Approach (ICD-10-PCS; principal; 2024-11-09)
PROC: 0QS03ZZ Reposition Lumbar Vertebra, Percutaneous Approach (ICD-10-PCS; 2024-11-09)
DX: A41.9 Sepsis, unspecified organism (principal); E43 Unspecified severe protein-calorie malnutrition; G92.8 Other toxic encephalopathy; I21.A1 Myocardial infarction type 2; L03.116 Cellulitis of left lower limb; N17.9 Acute kidney failure, unspecified; M62.82 Rhabdomyolysis; E87.20 Acidosis, unspecified; E87.1 Hypo-osmolality and hyponatremia; M80.88XA Other osteoporosis with current pathological fracture, vertebra(e), initial encounter for fracture; R64 Cachexia; Z68.1 Body mass index [BMI] 19.9 or less, adult; E86.0 Dehydration; D32.0 Benign neoplasm of cerebral meninges; E87.6 Hypokalemia; I25.10 Atherosclerotic heart disease of native coronary artery without angina pectoris; I48.0 Paroxysmal atrial fibrillation; I10 Essential (primary) hypertension; K21.9 Gastro-esophageal reflux disease without esophagitis; G47.00 Insomnia, unspecified; G89.4 Chronic pain syndrome; E86.1 Hypovolemia; T25.022A Burn of unspecified degree of left foot, initial encounter; X08.8XXA Exposure to other specified smoke, fire and flames, initial encounter; F64.0 Transsexualism; L97.521 Non-pressure chronic ulcer of other part of left foot limited to breakdown of skin; G93.89 Other specified disorders of brain; F03.A0 Unspecified dementia, mild, without behavioral disturbance, psychotic disturbance, mood disturbance, and anxiety; R33.9 Retention of urine, unspecified; E83.39 Other disorders of phosphorus metabolism; Z95.5 Presence of coronary angioplasty implant and graft; Z86.73 Personal history of transient ischemic attack (TIA), and cerebral infarction without residual deficits
CPT/HCPCS: 36415; 70450; 70553; 71045; 72125; 73030; 73502; 73560-LT; 73620; 76770; 80053; 80069; 80320; 81001; 82550; 82947; 83605; 83735; 84100; 84132; 84439; 84443; 84484; 85025; 87040; 87070; 87075; 87077; 87147; 87186; 87205; 93005; 93010; 93306; 94760; 94762; 96361; 96365; 96366; 96367; 96368; 96372; 97110; 97110-CQ; 97116; 97129; 97130; 97161; 97165; 97530; 97535; 99285-25; A9270; A9579; C1889; G0378; G0480; J0690; J0696; J1100; J1650; J2371; J2405; J2704; J3010; J3480; J7030; J7040; J7050; J7060; J7120; P9612

== ENCOUNTER 2025-01-13 13:07 | Emergency (ER) | payer OTHER ==
[~2025-01-13] VITALS: Ht 180.3 cm; Wt 74.8 kg
[~2025-01-13 13:07] MED LIST changes: +CALCITONIN SAL; +GABA100 PO; +MELATONIN5 M1 PO; +MICONAZOLE NITR85 GM TOP; +MULVITA PO; +SILVADENE20 G8 TOP; +VISBIOME 112.51 EACH PO; +VITAMIN B-1100 M1 PO
[2025-01-13] MEDS ORDERED: Pantoprazole Sodium 40 MG Injection IV ONE (13:40)
[2025-01-13] MEDS ORDERED: Pantoprazole Sodium 40 MG in NS 50 ML IV SCH (13:40)
[2025-01-13 13:42] LABS: BASOPHILS ABSOLUTE AUTO 0.05 K/mm3 (0.00-0.23); BASOPHILS PERCENT AUTO 1 % (0-2); EOSINOPHILS ABSOLUTE AUTO 0.26 K/mm3 (0.00-0.68); EOSINOPHILS PERCENT AUTO 3 % (0-6); Hematocrit 40.7 % (33.0-51.0); Hemoglobin 13.6 g/dL (11.5-16.0); IMMATURE GRAN ABSOLUTE AUTO 0.02 K/mm3 (0.00-0.10); IMMATURE GRAN PERCENT AUTO 0 % (0-1); LYMPHOCYTES PERCENT AUTO 30 % (21-46); MONOCYTES ABSOLUTE AUTO 0.76 K/mm3 (0.16-1.47); MONOCYTES PERCENT AUTO 10 % (4-13); Mean Corpuscular HGB 32.7 pg (26.0-34.0); Mean Corpuscular HGB Conc 33.4 g/dL (31.5-36.5); Mean Corpuscular Volume 98 fL (80-100); Mean Platelet Volume 10.1 fL (9.1-12.4); NEUTROPHILS ABSOLUTE AUTO 4.19 K/mm3 (1.96-9.15); NEUTROPHILS PERCENT AUTO 55 % (41-73); Platelet Count 230 K/mm3 (150-400); RDW Coefficient Variation 13.8 % (11.7-14.2); RDW Standard Deviation 50.1 fL (35.1-46.3); Red Blood Cell Count 4.16 M/mm3 (3.80-5.20); White Blood Cell Count 7.58 K/mm3 (4.00-11.30)
[2025-01-13 13:56] LABS: Albumin, Blood 3.1 g/dL (3.4-5.0); Albumin/Globulin Ratio 0.9 (0.8-1.8); Bilirubin, Total 0.3 mg/dL (0.1-1.0); Bun/Creatinine Ratio 27.7 (12.0-20.0); Creatinine, Blood 0.58 mg/dL (0.40-1.00); Globulin, Blood 3.3 g/dL (2.2-4.0); Potassium, Blood 4.2 mmol/L (3.5-5.5); Total Protein, Blood 6.4 g/dL (6.4-8.2)
[2025-01-13 13:59] LABS: International Normalized Ratio 1.01; Prothrombin Time Results 11.1 Sec (9.7-11.5)
[2025-01-13] MEDS ORDERED: NS 1,000 ML IV ONE (15:42)
[2025-01-13] MEDS ORDERED: Tranexamic Acid 100 ML IV ONE (16:35)
[2025-01-13 17:07] LABS: BASOPHILS ABSOLUTE AUTO 0.05 K/mm3 (0.00-0.23); BASOPHILS PERCENT AUTO 1 % (0-2); EOSINOPHILS ABSOLUTE AUTO 0.15 K/mm3 (0.00-0.68); EOSINOPHILS PERCENT AUTO 2 % (0-6); Hematocrit 32.2 % (33.0-51.0); Hemoglobin 10.8 g/dL (11.5-16.0); IMMATURE GRAN ABSOLUTE AUTO 0.04 K/mm3 (0.00-0.10); IMMATURE GRAN PERCENT AUTO 1 % (0-1); LYMPHOCYTES ABSOLUTE AUTO 1.61 K/mm3 (0.84-5.20); LYMPHOCYTES PERCENT AUTO 23 % (21-46); MONOCYTES ABSOLUTE AUTO 0.69 K/mm3 (0.16-1.47); MONOCYTES PERCENT AUTO 10 % (4-13); Mean Corpuscular HGB 32.2 pg (26.0-34.0); Mean Corpuscular HGB Conc 33.5 g/dL (31.5-36.5); Mean Corpuscular Volume 96 fL (80-100); Mean Platelet Volume 10.2 fL (9.1-12.4); NEUTROPHILS ABSOLUTE AUTO 4.54 K/mm3 (1.96-9.15); NEUTROPHILS PERCENT AUTO 64 % (41-73); Platelet Count 213 K/mm3 (150-400); RDW Coefficient Variation 13.9 % (11.7-14.2); RDW Standard Deviation 49.3 fL (35.1-46.3); Red Blood Cell Count 3.35 M/mm3 (3.80-5.20); White Blood Cell Count 7.08 K/mm3 (4.00-11.30)
[2025-01-13] MEDS ORDERED: LORazepam 2 MG/ML 1ML Injection IV ONE (20:35)
[2025-01-13] MEDS ORDERED: OLANZapine 10 MG Vial IM ONE (22:05)
[2025-01-14 00:24] VITALS: BP 156/101
== END 2025-01-14 00:19 | disposition short-term general hospital (02) ==
LOC: ER 13:07
PROVIDERS: Emergency Medicine
DX: K92.2 Gastrointestinal hemorrhage, unspecified (principal); R57.8 Other shock; E87.1 Hypo-osmolality and hyponatremia; I10 Essential (primary) hypertension; K21.9 Gastro-esophageal reflux disease without esophagitis
CPT/HCPCS: 36430; 74177; 80053; 82272; 85025; 85610; 85730; 86850; 86900; 86901; 86923; 93005; 93010; 96365-59; 96366; 96372-59; 96375; 96376; 99291-25; A6590; J2060; J2470; J7030; P9016; Q9967

== ENCOUNTER 2025-01-22 08:38 | Emergency (ER) | payer OTHER ==
[~2025-01-22] VITALS: Ht 165.1 cm; Wt 124.3 kg
[2025-01-22 09:18] LABS: BASOPHILS ABSOLUTE AUTO 0.04 K/mm3 (0.00-0.23); BASOPHILS PERCENT AUTO 1 % (0-2); EOSINOPHILS ABSOLUTE AUTO 0.23 K/mm3 (0.00-0.68); EOSINOPHILS PERCENT AUTO 4 % (0-6); Hematocrit 30.6 % (33.0-51.0); Hemoglobin 10.1 g/dL (11.5-16.0); IMMATURE GRAN ABSOLUTE AUTO 0.03 K/mm3 (0.00-0.10); IMMATURE GRAN PERCENT AUTO 1 % (0-1); LYMPHOCYTES ABSOLUTE AUTO 1.49 K/mm3 (0.84-5.20); LYMPHOCYTES PERCENT AUTO 24 % (21-46); MONOCYTES ABSOLUTE AUTO 0.62 K/mm3 (0.16-1.47); MONOCYTES PERCENT AUTO 10 % (4-13); Mean Corpuscular HGB 31.7 pg (26.0-34.0); Mean Corpuscular Volume 96 fL (80-100); Mean Platelet Volume 10.7 fL (9.1-12.4); NEUTROPHILS ABSOLUTE AUTO 3.73 K/mm3 (1.96-9.15); NEUTROPHILS PERCENT AUTO 61 % (41-73); Platelet Count 234 K/mm3 (150-400); RDW Coefficient Variation 14.3 % (11.7-14.2); RDW Standard Deviation 50.5 fL (35.1-46.3); Red Blood Cell Count 3.19 M/mm3 (3.80-5.20); White Blood Cell Count 6.14 K/mm3 (4.00-11.30)
[2025-01-22 09:39] LABS: Albumin, Blood 2.8 g/dL (3.4-5.0); Albumin/Globulin Ratio 1.1 (0.8-1.8); Bilirubin, Total 0.3 mg/dL (0.1-1.0); Bun/Creatinine Ratio 20.4 (12.0-20.0); Creatinine, Blood 0.59 mg/dL (0.40-1.00); Globulin, Blood 2.5 g/dL (2.2-4.0); Potassium, Blood 4.2 mmol/L (3.5-5.5); Total Protein, Blood 5.3 g/dL (6.4-8.2)
[2025-01-22] MEDS ORDERED: NS 1,000 ML IV SCH (11:00)
[2025-01-22] MEDS ORDERED: Tranexamic Acid 100 ML IV ONE (13:15)
[2025-01-22 14:35] VITALS: BP 95/65
== END 2025-01-22 15:09 | disposition home or self-care (01) ==
LOC: ER 08:38
PROVIDERS: Emergency Medicine
DX: K92.2 Gastrointestinal hemorrhage, unspecified (principal); D64.9 Anemia, unspecified; I10 Essential (primary) hypertension; K21.9 Gastro-esophageal reflux disease without esophagitis; Z79.82 Long term (current) use of aspirin; Z79.899 Other long term (current) drug therapy
CPT/HCPCS: 36430; 74177; 80053; 85025; 86850; 86900; 86901; 86923; 96361; 96374-59; 99285-25; J7030; P9016; Q9967